=== PATIENT | female | born 1940 | race Caucasian/White ===

== ENCOUNTER 2020-11-09 13:08 | Emergency (ER) | payer MEDICARE, SELFPAY ==
[2020-11-09 13:19] VITALS: BP 177/103; PULSE 93; RESP 16; TEMP 37.4; O2SAT 96; BMI 27.4
[2020-11-09 14:03] VITALS: BP 154/89; PULSE 93; RESP 16; O2SAT 95
--- NOTE | 2020-11-09 14:03 | XRR_ITS ---
PROCEDURE INFORMATION: Exam: XR Chest Exam date and time: 11/09/2020 2:03 PM Age: 80 years old Clinical indication: Right-sided; Patient HX: Chest pain, neuropathy lower extremities, vomiting/pain throughout thoracic region, burning in chest. Generally not feeling well TECHNIQUE: Imaging protocol: XR of the chest. Views: 1 view. COMPARISON: No relevant prior studies available. FINDINGS: Lungs: Unremarkable. No consolidation. Pleural spaces: Unremarkable. No pleural effusion. No pneumothorax. Heart/Mediastinum: Calcified left hilar and aortopulmonic lymph nodes are present. Bones/joints: Unremarkable. XR/XR chest 1V portable [id number] IMPRESSION: There are no acute chest findings.
--- NOTE | 2020-11-09 14:04 | ECG_ITS ---
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 Measurements Intervals [place] Rate: 86 P: 62 MS: 178 QRS: -35 QRSD: 89 T: 81 QT: 338 QTc: 406 Interpretive Statements SINUS RHYTHM WITH SINUS ARRHYTHMIA POSSIBLE LEFT ATRIAL ENLARGEMENT [-0.1mV P WAVE IN V1/V2] MARKED LEFT AXIS DEVIATION [QRS AXIS < -30] LEFT VENTRICULAR HYPERTROPHY AND ST-T CHANGE [VOLTAGE CRITERIA PLUS ST/T ABNORMALITY] No previous ECG available for comparison Electronically Signed On 11-09-2020 21:07:30 CDT by Cami Sethi M.D. [id number] f
--- NOTE | 2020-11-09 14:05 | W.ED.GENADLT ---
HPI - General Adult General: Chief complaint: Abdominal Pain Stated complaint: High Bp, Diarrhea. Time Seen by Provider: 11/09/20 13:43 Source: patient and family Mode of arrival: ambulatory Limitations: no limitations History of Present Illness: HPI narrative: Patient is a 80-year-old female here for multiple medical complaints. Patient tells me around 12:00 AM in the middle of the night she awoke to neuropathy in her lower extremities. Patient states this is normal for her. She remembered that she had not taken her evening medications which included her gabapentin therefore around that time she took all of her evening medications. She states about 3 hours later she woke up feeling extremely nauseous and had several episodes of non-bloody emesis. She then had 1-2 episodes of non-bloody diarrhea. Patient tells me she takes sitagliptin/metformin for her diabetes and states her dose was recently doubled stating she is now on a total of 4000mg metformin daily. She states my stomach can't handle that much . She wonders if taking this medication on an empty stomach could be causing her symptoms. Patient also has complaints of pain throughout her thoracic back region. She has some pain to her right lateral chest. Symptoms have been present ever since I sneezed 30 times in a row which she tells me was about a week ago. She has some complaints of burning in her chest (as she points along her esophagus) that started following the episodes of vomiting. Patient is very talkative on exam and sometimes difficult to follow. She reports she generally feels unwell. Relieving factors: none Exacerbating factors: none Associated symptoms: Reports chest pain, nausea (subsided now) and vomiting; Deny confusion, dyspnea, headache(s), malaise, rash, palpitations or syncope Review of Systems Const: Reports: other (reports I feel ill ); Denies: fever(s), chills, body aches, change in appetite, change in weight, fatigue, malaise or night sweats Eyes: Denies: change in vision, blurry vision, photophobia, floaters or seeing flashes ENMT: Reports: throat pain and odynophagia; Denies: hoarseness, mouth pain, swelling of lips/tongue, ear or mastoid pain, ear discharge, nasal discharge, nasal congestion, post nasal drip or sinus pain Card: Reports: chest pain; Denies: palpitations, irregular heart rhythm, edema, swelling of feet/ankles, lightheadedness, syncope, pre-syncope, dyspnea on exertion, orthopnea, leg pain with exertion or acrocyanosis Resp: Reports: non-productive cough; Denies: dyspnea, productive cough, wheezing, stridor, pain on inspiration, change in phlegm color, hemoptysis or chest congestion GI: Reports: abdominal pain (subsided now), nausea (subsided now), vomiting and diarrhea; Denies: hematemesis, coffee ground emesis, dysphagia, hematochezia or melena : Denies: flank pain, difficulty voiding, dysuria, urinary frequency or urinary urgency Musc: Reports: back pain; Denies: neck pain, extremity pain, extremity swelling, joint pain or joint swelling Skin/Breast: Denies: rash Neuro: Denies: headache(s), numbness in extremities, weakness in extremities, sensory changes, lack of coordination, difficulty walking, frequent falls, dizziness, vertigo, confusion, behavioral changes, Slurred speech present, difficulty communicating thoughts or seizure-like activity Physical Exam Const: COMMON NORMALS: no acute distress, average body habitus, patient oriented x3, no limitations, healthy appearing, alert and well nourished GENERAL APPEARANCE: cooperative ORIENTATION/CONSCIOUSNESS: Yes awake, Yes oriented to person, Yes oriented to place and Yes oriented to time HENMT: COMMON NORMALS: normocephalic and atraumatic HEAD & SCALP: normocephalic and atraumatic Neck/C-Spine: COMMON NORMALS: full ROM Chest: COMMONS NORMALS: normal inspection of the chest Breast/axilla inspection: Yes no chest deformity, asymmetry, normal contours, no nodules, masses, tenderness Chest images (female): 1. very mild palpation here Resp: COMMON NORMALS: normal respiratory effort and clear to auscultation bilaterally AUSCULTATION: clear to auscultation bilaterally Cardio: COMMON NORMALS: regular rate and regular rhythm RATE: regular rate RHYTHM: regular rhythm GI: COMMON NORMALS: Normal to inspection, nondistended, normoactive bowel sounds present, Soft to palpation, non-tender, No hepatosplenomegaly present and no masses INSPECTION: Yes normal to inspection AUSCULTATION: Yes normoactive bowel sounds PALPATION: Yes Soft to palpation and Yes No hepatosplenomegaly present : COMMON NORMALS: Yes no CVA tenderness BLADDER/KIDNEY EXAM: Yes no CVA tenderness Back/Pelvis: COMMON NORMALS: no CVA tenderness, thoracic and lumbar spine normal to inspection, no thoracic nor lumbar tenderness and thoraco-lumbar ROM normal THORACIC SPINE/UPPER BACK: Yes normal to inspection, Yes thoracic ROM normal and No thoracic spinal tenderness LUMBAR SPINE/LOWER BACK: Yes normal to inspection, Yes lumbar ROM normal and No lumbar spinal tenderness PELVIS: Yes buttocks normal SACROILIAC JOINTS: Yes SI joints normal BACK IMAGE (FEMALE): 1. 2. reports pain here; during palpation and asking if it hurt she states no it feels good Extremity: COMMON NORMALS: normal to inspection, full ROM, capillary refill normal, no clubbing, cyanosis or edema, no calf tenderness and no pedal edema GENERAL: Yes normal exam except as noted Neuro: CHLOÉ COMA SCALE: document GCS findings Chloé coma scale eye opening: Spontaneous Chloé coma scale verbal response: Orientated Chloé coma scale motor response: Obey commands Chloé coma scale total score: 15 COMMON NORMALS: patient oriented x3, CN's II-XII intact bilaterally, moves all extremities, no focal motor deficits and no sensory deficits noted SENSORIUM/ORIENTATION: Yes alert, Yes oriented to person, Yes oriented to place and Yes oriented to time Skin: COMMON NORMALS: no rashes or lesions noted GENERAL SKIN EXAM: no rashes or lesions noted TRAUMA: no lacerations or abrasions Course Vital Signs: Vital signs: Vital Signs Temperature 99.4 F 11/09/20 13:19 Pulse Rate 93 11/09/20 14:03 Respiratory Rate 16 11/09/20 14:03 Blood Pressure 154/89 11/09/20 14:03 Pulse Oximetry 95 11/09/20 14:03 MDM - General Adult [facility] Narrative: Medical decision making narrative: Patient clinically appears in no acute distress. Her vital signs are stable. CBC is non-concerning. She has a normal D-dimer. Chemistry panel overall looks okay. Glucose is 170. She states her last hemoglobin A1c was over 8 so this is probably normal for her. Baseline troponin was 12 with a nonsignificant delta. Initial and repeat EKG showed no ischemic changes. CXR is normal. UA does not appear infected. She has no abdominal tenderness. Her main complaint was the nausea, vomiting, and diarrhea. She has not had any episodes of either throughout her stay. The pain in her chest/esophagus was fully alleviated after GI cocktail and felt to be secondary to possible acid irritation from the vomiting. I think symptoms were probably related to taking all of her medications including a large dose of Metformin on an empty stomach. Recommend she follow-up with her PCP for further evaluation of her diabetic medication regimen. At this time patient is stable for discharge with return to ED precautions. Lab Data: Labs: Lab Results 11/09/20 11/09/20 11/09/20 Range/Units 14:04 14:17 14:17 WBC 10.9 H (4.0-10.0) 10^3/ uL RBC 4.23 (4.1-5.3) 10^6/u L Hgb 13.3 (11.5-15.3) g/dL Hct 40.4 (37.0-47.0) % MCV 95.5 (81-99) fL MCH 31.4 (28.0-34.0) pg MCHC 32.9 (30.0-36.0) g/dL RDW 13.0 (12.1-15.1) % Plt Count 179 (130-400) 10^3/c mm MPV 10.4 (7.4-10.4) fL Neut % (Auto) 79.5 % Lymph % (Auto) 11.1 % [place] % (Auto) 8.2 % Eos % (Auto) 0.6 % Baso % (Auto) 0.3 % Neut # (Auto) 8.68 H (1.8-7.7) 10^3/u L Lymph # (Auto) 1.2 (0.8-4.8) 10^3/u L [place] # (Auto) 0.9 (0.2-0.9) 10^3/u L Eos # (Auto) 0.1 (0.0-0.8) 10^3/u L Baso # (Auto) 0.0 (0.0-0.1) 10^3/u L Nucleated RBC % (a uto) 0 % Nucleated RBCs # 0.0 /100WBC D-Dimer 0.54 (0-0.59) ug/mIFE U Sodium (136-145) mmol/L Potassium (3.5-5.1) mmol/L Chloride (98-107) mmol/L Carbon Dioxide (22-29) mmol/L Anion Gap (5-19) BUN (8-23) mg/dL Creatinine (0.5-0.9) mg/dL GFR Calculation Glucose (65-115) mg/dL POC Glucose 194 H (70-110) mg/dL Calculated Osmolal ity (285-295) mOsm/k g Calcium (8.5-10.5) mg/dL Total Bilirubin (0.15-1.2) mg/dL AST (0-32) U/L ALT (0-33) U/L Alkaline Phosphata se (35-105) IU/L Troponin T Baselin e (0-10) ng/L Troponin T 120 Min [place] (0-10) ng/L Delta Troponin T (0-10) ABS# Total Protein (6.6-8.7) g/dL Albumin (3.5-5.2) g/dL Globulin (1.3-4.6) g/dL Lipase (13-60) U/L Urine Color (Yellow) Urine Appearance (CLEAR) Urine pH (5-7) Ur Specific Gravit y (1.005-1.030) Urine Protein (Negative) Urine Glucose (UA) (Normal) Urine Ketones (Negative) Urine Blood (Negative) Urine Nitrate (Negative) Urine Bilirubin (Negative) Urine Urobilinogen (Negative) mg/dL Ur Leukocyte Mariel ase (Negative) Urine RBC (0-2) /hpf Urine WBC (0-5) /hpf Ur Squamous Epith Cells (0-5) /hpf Amorphous Sediment Urine Bacteria (NONE) /hpf Urine Mucus /hpf 11/09/20 11/09/20 11/09/20 Range/Units 14:17 14:17 14:22 WBC (4.0-10.0) 10^3/ uL RBC (4.1-5.3) 10^6/u L Hgb (11.5-15.3) g/dL Hct (37.0-47.0) % MCV (81-99) fL MCH (28.0-34.0) pg MCHC (30.0-36.0) g/dL RDW (12.1-15.1) % Plt Count (130-400) 10^3/c mm MPV (7.4-10.4) fL Neut % (Auto) % Lymph % (Auto) % [place] % (Auto) % Eos % (Auto) % Baso % (Auto) % Neut # (Auto) (1.8-7.7) 10^3/u L Lymph # (Auto) (0.8-4.8) 10^3/u L [place] # (Auto) (0.2-0.9) 10^3/u L Eos # (Auto) (0.0-0.8) 10^3/u L Baso # (Auto) (0.0-0.1) 10^3/u L Nucleated RBC % (a uto) % Nucleated RBCs # /100WBC D-Dimer (0-0.59) ug/mIFE U Sodium 131 L (136-145) mmol/L Potassium 4.4 (3.5-5.1) mmol/L Chloride 96 L (98-107) mmol/L Carbon Dioxide 22 (22-29) mmol/L Anion Gap 17.4 (5-19) BUN 13 (8-23) mg/dL Creatinine 0.7 (0.5-0.9) mg/dL GFR Calculation Not Reportable Glucose 170 H (65-115) mg/dL POC Glucose (70-110) mg/dL Calculated Osmolal ity 276 L (285-295) mOsm/k g Calcium 9.7 (8.5-10.5) mg/dL Total Bilirubin 0.4 (0.15-1.2) mg/dL AST 25 (0-32) U/L ALT 29 (0-33) U/L Alkaline Phosphata se 68 (35-105) IU/L Troponin T Baselin e 12 H (0-10) ng/L Troponin T 120 Min [place] (0-10) ng/L Delta Troponin T (0-10) ABS# Total Protein 7.2 (6.6-8.7) g/dL Albumin 4.9 (3.5-5.2) g/dL Globulin 2.3 (1.3-4.6) g/dL Lipase 51 (13-60) U/L Urine Color Yellow (Yellow) Urine Appearance Hazy A (CLEAR) Urine pH 5 (5-7) Ur Specific Gravit y 1.020 (1.005-1.030) Urine Protein Neg (Negative) Urine Glucose (UA) Norm (Normal) Urine Ketones Negative (Negative) Urine Blood Neg (Negative) Urine Nitrate Negative (Negative) Urine Bilirubin Neg (Negative) Urine Urobilinogen Norm (Negative) mg/dL Ur Leukocyte Mariel ase Negative (Negative) Urine RBC None (0-2) /hpf Urine WBC 0-4 H (0-5) /hpf Ur Squamous Epith Cells 10-15 H (0-5) /hpf Amorphous Sediment Not Reportable Urine Bacteria 1+ H (NONE) /hpf Urine Mucus 1+ /hpf 11/09/20 Range/Units 16:23 WBC (4.0-10.0) 10^3/ uL RBC (4.1-5.3) 10^6/u L Hgb (11.5-15.3) g/dL Hct (37.0-47.0) % MCV (81-99) fL MCH (28.0-34.0) pg MCHC (30.0-36.0) g/dL RDW (12.1-15.1) % Plt Count (130-400) 10^3/c mm MPV (7.4-10.4) fL Neut % (Auto) % Lymph % (Auto) % [place] % (Auto) % Eos % (Auto) % Baso % (Auto) % Neut # (Auto) (1.8-7.7) 10^3/u L Lymph # (Auto) (0.8-4.8) 10^3/u L [place] # (Auto) (0.2-0.9) 10^3/u L Eos # (Auto) (0.0-0.8) 10^3/u L Baso # (Auto) (0.0-0.1) 10^3/u L Nucleated RBC % (a uto) % Nucleated RBCs # /100WBC D-Dimer (0-0.59) ug/mIFE U Sodium (136-145) mmol/L Potassium (3.5-5.1) mmol/L Chloride (98-107) mmol/L Carbon Dioxide (22-29) mmol/L Anion Gap (5-19) BUN (8-23) mg/dL Creatinine (0.5-0.9) mg/dL GFR Calculation Glucose (65-115) mg/dL POC Glucose (70-110) mg/dL Calculated Osmolal ity (285-295) mOsm/k g Calcium (8.5-10.5) mg/dL Total Bilirubin (0.15-1.2) mg/dL AST (0-32) U/L ALT (0-33) U/L Alkaline Phosphata se (35-105) IU/L Troponin T Baselin e (0-10) ng/L Troponin T 120 Min [place] 10.58 H (0-10) ng/L Delta Troponin T -1.42 L (0-10) ABS# Total Protein (6.6-8.7) g/dL Albumin (3.5-5.2) g/dL Globulin (1.3-4.6) g/dL Lipase (13-60) U/L Urine Color (Yellow) Urine Appearance (CLEAR) Urine pH (5-7) Ur Specific Gravit y (1.005-1.030) Urine Protein (Negative) Urine Glucose (UA) (Normal) Urine Ketones (Negative) Urine Blood (Negative) Urine Nitrate (Negative) Urine Bilirubin (Negative) Urine Urobilinogen (Negative) mg/dL Ur Leukocyte Mariel ase (Negative) Urine RBC (0-2) /hpf Urine WBC (0-5) /hpf Ur Squamous Epith Cells (0-5) /hpf Amorphous Sediment Urine Bacteria (NONE) /hpf Urine Mucus /hpf Imaging Data^: CXR: My impression: NAD EKG Data^: EKG 1: EKG interpretation date: 11/09/20 EKG interpretation time: 13:44 Interpretation: Sinus rhythm with sinus arrhythmia Rate [address] elevation or depression changes noted Computer generated interpretation: Chest X-Ray 11/09/20 14:03 IMPRESSION: There are no acute chest findings. EKG 2: EKG interpretation date: 11/09/20 EKG interpretation time: 15:50 Interpretation: Sinus rhythm Rate [address] elevation or depression changes noted No acute changes when compared to EKG performed earlier on same visit Computer generated interpretation: Chest X-Ray 11/09/20 14:03 IMPRESSION: There are no acute chest findings. Discharge Plan Discharge Patient Disposition: Home Clinical Impression: Non-cardiac chest pain Adverse reaction to drug Qualifiers: Encounter type: initial encounter Qualified Code(s): T50.905A - Adverse effect of unspecified drugs, medicaments and biological substances, initial encounter Condition: Stable Prescriptions: No Action losartan 50 mg tablet 50 mg PO DAILY RF: 0 alendronate 70 mg tablet 70 mg PO Q7D RF: 0 hydrochlorothiazide 12.5 mg capsule 12.5 mg PO DAILY PRN (Reason: swelling) RF: 0 omeprazole 20 mg capsule,delayed release(DR/EC) 20 mg PO DAILY RF: 0 gabapentin 100 mg capsule 200 mg PO DAILY RF: 0 albuterol sulfate 90 mcg/actuation HFA aerosol inhaler See Rx Instructions .ROUTE .COMPLEX RF: 0 Janumet 50-1,000 mg tablet 1 tab PO BID RF: 0 Discharge Orders: Discharge ED (Routine); Ordered 11/11/20 Ordered By: Geovanna Underwood Referrals: Melvin Chinchilla MD [Primary Care Provider] - Patient Instructions: Opioid Safety Coding Level of Care Code ED [place] [facility] for [place] Fwd Exam Comprehensive
[2020-11-09 14:23] LABS: Basophils % 0.3 %; Eosinophils # 0.1 10^3/uL (0.0-0.8); Eosinophils % 0.6 %; Hematocrit 40.4 % (37.0-47.0); Hemoglobin 13.3 g/dL (11.5-15.3); Lymphocytes # 1.2 10^3/uL (0.8-4.8); Lymphocytes % 11.1 %; Mean Corpuscular HGB Conc 32.9 g/dL (30.0-36.0); Mean Corpuscular Hemoglobin 31.4 pg (28.0-34.0); Mean Corpuscular Volume 95.5 fL (81-99); Mean Platelet Volume 10.4 fL (7.4-10.4); Monocytes # 0.9 10^3/uL (0.2-0.9); Monocytes % 8.2 %; Neutrophils # 8.68 10^3/uL (1.8-7.7); Neutrophils % 79.5 %; Nucleated Red Blood Cells % 0 %; Platelet Count 179 10^3/cmm (130-400); Red Blood Count 4.23 10^6/uL (4.1-5.3); White Blood Count 10.9 10^3/uL (4.0-10.0)
[2020-11-09] MEDS: lidocaine 2% viscous 15 ML, aluminum-mag hydrox-simethicon 30 ML, sucralfate oral liq 1 GM PO (14:25)
[2020-11-09 14:36] LABS: D Dimer 0.54 ug/mIFEU (0-0.59)
[2020-11-09 14:43] LABS: Alanine Aminotransferase 29 U/L (0-33); Albumin Level 4.9 g/dL (3.5-5.2); Alkaline Phosphatase 68 IU/L (35-105); Blood Urea Nitrogen 13 mg/dL (8-23); Calcium 9.7 mg/dL (8.5-10.5); Carbon Dioxide 22 mmol/L (22-29); Chloride 96 mmol/L (98-107); Creatinine Clr Calc Pharmacy 52.4032; Globulin 2.3 g/dL (1.3-4.6); Glucose 170 mg/dL (65-115); Lipase 51 U/L (13-60); Osmolality Calculated 276 mOsm/kg (285-295); Sodium 131 mmol/L (136-145); Total Bilirubin 0.4 mg/dL (0.15-1.2); Total Protein 7.2 g/dL (6.6-8.7)
[2020-11-09 14:44] LABS: Anion Gap 17.4 (5-19); Aspartate Amino Transferase 25 U/L (0-32); Potassium 4.4 mmol/L (3.5-5.1)
[2020-11-09 14:45] LABS: Add Urine Microscopic? YES; Bilirubin Urine Neg (Negative); Blood Urine Neg (Negative); Glucose Urine UA Norm (Normal); Ketones Urine Negative (Negative); Leukocyte Esterase Urine Negative (Negative); Nitrate Urine Negative (Negative); Protein Urine Neg (Negative); Urine Appearance Hazy (CLEAR); Urine Color Yellow (Yellow); Urobilinogen Urine Norm (Negative); pH Urine 5 (5-7)
[2020-11-09 14:47] LABS: Troponin(5th) Baseline 12 ng/L (0-10)
[2020-11-09 14:52] LABS: Bacteria Urine 1+ /hpf; Mucus Urine 1+ /hpf; WBC Urine 0-4 /hpf (0-5)
[2020-11-09 14:53] LABS: Add Urine Culture? No
--- NOTE | 2020-11-09 16:04 | ECG_ITS ---
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 Measurements Intervals [place] Rate: 81 P: 69 CT: 150 QRS: -29 QRSD: 87 T: 79 QT: 363 QTc: 423 Interpretive Statements SINUS RHYTHM BORDERLINE LEFT AXIS DEVIATION [QRS AXIS < -20] LEFT VENTRICULAR HYPERTROPHY AND ST-T CHANGE [VOLTAGE CRITERIA PLUS ST/T ABNORMALITY] No previous ECG available for comparison Electronically Signed On 11-10-2020 23:05:49 CDT by Cami Sethi M.D. [id number]
[2020-11-09 16:47] LABS: Troponin 5 2HR 10.58 ng/L (0-10)
[2020-11-09 16:48] LABS: Troponin 5 2HR Delta -1.42 ABS# (0-10)
[2020-11-10 12:02] LABS: Glucose Point of Care 194 mg/dL (70-110)
== END 2020-11-09 17:48 | disposition home or self-care (01) ==
PROVIDERS: Emergency Provider Physician Assistant; PCP Family Medicine
DX: R07.89 Other chest pain (principal); T50.905A Adverse effect of unspecified drugs, medicaments and biological substances, initial encounter; R07.9 Chest pain, unspecified
CPT/HCPCS: 36415; 36416; 71045; 80053; 81001; 82962; 83690; 84484; 85025; 85378; 93005; 99283

== ENCOUNTER 2021-01-17 13:20 | Emergency (ER) | payer MEDICARE, SELFPAY ==
--- NOTE | 2021-01-17 13:32 | CTR_ITS ---
PROCEDURE INFORMATION: Exam: CT Head Without Contrast Exam date and time: 01/17/2021 1:32 PM Age: 80 years old Clinical indication: Weakness, extremity and weakness, facial; Left; Patient HX: C/O L sided weakness and facial droop; Additional info: CVA TECHNIQUE: Imaging protocol: Computed tomography of the head without contrast. Radiation optimization: All CT scans at this facility use at least one of these dose optimization techniques: automated exposure control; mA and/or kV adjustment per patient size (includes targeted exams where dose is matched to clinical indication); or iterative reconstruction. COMPARISON: No relevant prior studies available. RADIATION DOSE METRICS: Total DLP (mGy-cm): 748.35 FINDINGS: Brain: Benign globus pallidus calcifications are present. There is mild diffuse cerebral atrophy present, consistent with this patient's age. Incidental calcified pineal gland. Cerebral ventricles: No ventriculomegaly. Paranasal sinuses: Visualized sinuses are unremarkable. No fluid levels. Mastoid air cells: Visualized mastoid air cells are well aerated. Vasculature: Calcified plaque is present within the carotid siphons. Bones/joints: Unremarkable. No acute fracture. Soft tissues: Unremarkable. CT/CT head wo con* [id number] IMPRESSION: There are senescent changes of the brain as described above. No evidence for large acute ischemic infarction or acute intracranial injury. Radiation Dose CTDIVOL = (mGy): DLP = 748.35 (mGy-cm)
[2021-01-17 13:35] VITALS: BP 143/76; PULSE 73; RESP 16; TEMP 36.7; O2SAT 96; BMI 27.4
[2021-01-17 14:05] LABS: Basophils % 0.6 %; Eosinophils # 0.1 10^3/uL (0.0-0.8); Eosinophils % 1.8 %; Hematocrit 40.1 % (37.0-47.0); Hemoglobin 13.2 g/dL (11.5-15.3); Lymphocytes # 2.1 10^3/uL (0.8-4.8); Lymphocytes % 28.7 %; Mean Corpuscular HGB Conc 32.9 g/dL (30.0-36.0); Mean Corpuscular Hemoglobin 31.7 pg (28.0-34.0); Mean Corpuscular Volume 96.4 fl (81-99); Mean Platelet Volume 10.4 fL (7.4-10.4); Monocytes # 0.6 10^3/uL (0.2-0.9); Monocytes % 8.7 %; Neutrophils # 4.26 10^3/uL (1.8-7.7); Neutrophils % 59.5 %; Nucleated Red Blood Cells % 0 %; Platelet Count 192 10^3/cmm (130-400); Red Blood Count 4.16 10^6/uL (4.1-5.3); Red Cell Distribution Width 12.8 % (12.1-15.1); White Blood Count 7.2 10^3/uL (4.0-10.0)
--- NOTE | 2021-01-17 14:26 | W.ED.DIZZY ---
HPI - Dizziness General: Chief Complaint: Dizziness Stated Complaint: stroke like symptoms earlier in the day. Time Seen by Provider: 01/17/21 13:31 History of Present Illness: HPI Narrative: 80-year-old female presents emergency room via EMS. Earlier today she went out to check her mail got lightheaded dizzy felt weak on her left side felt like she was falling to the left side did not really affect her speech or vision that resolved when she got back to her apartment. Her friend stated that she later had a left-sided facial droop. On arrival here patient is awake alert oriented x3 with no focal neurologic deficits noted. Hemant have a history of previous stroke she is diabetic and had some recent medication adjustment. She reports that her symptoms are worse when she sits or stands and better when she lays down she denies any chest pain or shortness of breath. MD elicited complaint: dizziness and lightheadedness Onset (ago): minute(s) Timing: sudden onset Severity: moderate Description: sense of movement, lightheadedness, off-balance and difficulty walking Context: change in body position Exacerbating factors: change in body position Relieving factors: lying down Associated symptoms: Denies chest pain, chills, cough, diaphoresis, ear discharge, ear pressure, fevers/chills, headache(s), malaise, nausea, nasal congestion, palpitations, rash, short of breath, syncope, tinnitus, vomiting or weakness Associated neuro symptoms: Deny confusion, difficulty speaking, dysphagia, diplopia, extremity weakness, facial numbness, facial weakness, gait changes, numbness in extremities or visual changes Review of Systems Const: Denies: chills, malaise or diaphoresis ENMT: Denies: ear discharge, tinnitus or nasal congestion Card: Denies: chest pain, palpitations or syncope Resp: Denies: dyspnea, productive cough or non-productive cough GI: Denies: nausea, vomiting or dysphagia : Denies: flank pain, difficulty voiding, dysuria, urinary frequency or urinary urgency Skin/Breast: Denies: rash or pruritus Neuro: Denies: headache(s), numbness in extremities or confusion Physical Exam Const: COMMON NORMALS: no acute distress GENERAL APPEARANCE: cooperative and comfortable ORIENTATION/CONSCIOUSNESS: Yes awake, Yes oriented to person, Yes oriented to place and Yes oriented to time HENMT: COMMON NORMALS: normocephalic, atraumatic and hearing grossly normal bilaterally HEAD & SCALP: normocephalic and atraumatic Eye: COMMON NORMALS: Equal, round and reactive pupils present, EOMs intact bilaterally, conjunctivae normal and no scleral icterus CONJUNCTIVA: Yes conjunctivae normal PUPIL: Yes Equal, round and reactive pupils present Neck/C-Spine: COMMON NORMALS: full ROM, no lymphadenopathy, supple and no JVD Resp: COMMON NORMALS: normal respiratory effort, No retractions, No use of accessory muscles and clear to auscultation bilaterally AUSCULTATION: clear to auscultation bilaterally Cardio: COMMON NORMALS: no JVD, regular rate, regular rhythm and No murmurs present (Cardio) RATE: regular rate RHYTHM: regular rhythm GI: COMMON NORMALS: Soft to palpation and No hepatosplenomegaly present AUSCULTATION: Yes normoactive bowel sounds PALPATION: Yes Soft to palpation, No Tenderness to palpation present (GI), No Guarding due to palpation present (GI) and Yes No hepatosplenomegaly present Extremity: COMMON NORMALS: normal to inspection, capillary refill normal, no clubbing, cyanosis or edema, no calf tenderness and no pedal edema Neuro: SENSORIUM/ORIENTATION: Yes oriented to person, Yes oriented to place and Yes oriented to time Skin: COMMON NORMALS: no rashes or lesions noted GENERAL SKIN EXAM: no rashes or lesions noted Course Vital Signs: Vital signs: Vital Signs Temperature 98.1 F 01/17/21 13:35 Pulse Rate 73 01/17/21 18:20 Respiratory Rate 16 01/17/21 15:38 Blood Pressure 138/68 01/17/21 18:20 Pulse Oximetry 97 01/17/21 15:38 MDM - Dizziness Lab Data: Labs: Lab Results 01/17/21 01/17/21 Range/Units 13:10 13:10 WBC 7.2 (4.0-10.0) 10^3/ uL RBC 4.16 (4.1-5.3) 10^6/u L Hgb 13.2 (11.5-15.3) g/dL Hct 40.1 (37.0-47.0) % MCV 96.4 (81-99) fl MCH 31.7 (28.0-34.0) pg MCHC 32.9 (30.0-36.0) g/dL RDW 12.8 (12.1-15.1) % Plt Count 192 (130-400) 10^3/c mm MPV 10.4 (7.4-10.4) fL Neut % (Auto) 59.5 % Lymph % (Auto) 28.7 % [place] % (Auto) 8.7 % Eos % (Auto) 1.8 % Baso % (Auto) 0.6 % Neut # (Auto) 4.26 (1.8-7.7) 10^3/u L Lymph # (Auto) 2.1 (0.8-4.8) 10^3/u L [place] # (Auto) 0.6 (0.2-0.9) 10^3/u L Eos # (Auto) 0.1 (0.0-0.8) 10^3/u L Baso # (Auto) 0.0 (0.0-0.1) 10^3/u L Nucleated RBC % (a uto) 0 % Nucleated RBCs # 0.0 /100WBC Sodium 138 (136-145) mmol/L Potassium 4.5 (3.5-5.1) mmol/L Chloride 101 (98-107) mmol/L Carbon Dioxide 23 (22-29) mmol/L Anion Gap 18.5 (5-19) BUN 13 (8-23) mg/dL Creatinine 0.9 (0.5-0.9) mg/dL GFR Calculation Not Reportable Glucose 184 H (65-115) mg/dL Calculated Osmolal ity 291 (285-295) mOsm/k g Calcium 9.7 (8.5-10.5) mg/dL Total Bilirubin 0.3 (0.15-1.2) mg/dL AST 21 (0-32) U/L ALT 28 (0-33) U/L Alkaline Phosphata se 78 (35-105) IU/L Total Protein 8.1 (6.6-8.7) g/dL Albumin 4.6 (3.5-5.2) g/dL Globulin 3.5 (1.3-4.6) g/dL Discharge Plan Discharge Patient Disposition: Home Condition: Stable Prescriptions: New aspirin 81 mg tablet,delayed release (DR/EC) 81 mg PO DAILY Qty: 30 RF: 0 meclizine 25 mg tablet 12.5 mg PO QID PRN (Reason: dizziness) Qty: 20 RF: 0 No Action Jardiance 10 mg Tablet 10 mg PO DAILY MDD SEE PHARMACY COMMENT RF: 0 losartan 50 mg tablet 50 mg PO DAILY RF: 0 alendronate 70 mg tablet 70 mg PO Q7D RF: 0 hydrochlorothiazide 12.5 mg capsule 12.5 mg PO DAILY PRN (Reason: swelling) RF: 0 omeprazole 20 mg capsule,delayed release(DR/EC) 20 mg PO DAILY RF: 0 gabapentin 100 mg capsule 200 mg PO BEDTIME RF: 0 albuterol sulfate 90 mcg/actuation HFA aerosol inhaler 2 puff inhalation Q4H PRN (Reason: Shortness Of Breath) RF: 0 Janumet 50-1,000 mg tablet 1 tab PO BID RF: 0 Discharge Orders: Discharge ED (Routine); Ordered 01/17/21 Ordered By: Vik Garcia Referrals: Melvin Chinchilla MD [Primary Care Provider] - Discharge Diet: Usual diet Discharge Activity: Increase activity as tolerated Patient Instructions: Opioid Safety Coding Level of Care Code ED Screening Unit Registered Nurse for Chg Fwd Exam Comprehensive NIH stroke score NIHSS Level Of Consciousness - 1a: 0 Level Of Consciousness Questions - 1b: Both Correct Level Of Consciousness Commands - 1c: Both Correct Best Gaze - 2: Normal Visual Sosa - 3: No Visual Loss Facial Palsy - 4: Normal Motor Arm Right - 5: No Drift Motor Arm Left - 5: No Drift Motor Leg Right - 6: No Drift Motor Leg Left - 6: No Drift Limb Ataxia - 7: Absent Sensory - 8: Normal Best Language - 9: No Aphasia Dysarthia - 10: Normal Extinction And Inattention - 11: 0 Score Total Score: 0
[2021-01-17 14:30] LABS: Alanine Aminotransferase 28 U/L (0-33); Albumin Level 4.6 g/dL (3.5-5.2); Alkaline Phosphatase 78 IU/L (35-105); Anion Gap 18.5 (5-19); Aspartate Amino Transferase 21 U/L (0-32); Blood Urea Nitrogen 13 mg/dL (8-23); Calcium 9.7 mg/dL (8.5-10.5); Carbon Dioxide 23 mmol/L (22-29); Chloride 101 mmol/L (98-107); Globulin 3.5 g/dL (1.3-4.6); Glucose 184 mg/dL (65-115); Osmolality Calculated 291 mOsm/kg (285-295); Potassium 4.5 mmol/L (3.5-5.1); Sodium 138 mmol/L (136-145); Total Bilirubin 0.3 mg/dL (0.15-1.2); Total Protein 8.1 g/dL (6.6-8.7)
--- NOTE | 2021-01-17 14:54 | ECG_ITS ---
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 Measurements Intervals [place] Rate: 67 P: 56 [place]: 183 QRS: -21 QRSD: 90 T: 75 QT: 395 QTc: 420 Interpretive Statements SINUS RHYTHM BORDERLINE LEFT AXIS DEVIATION [QRS AXIS < -20] MODERATE VOLTAGE CRITERIA FOR LVH, CONSIDER NORMAL VARIANT [MEETS CRITERIA IN ONE OF: R(aVL), S(V1), R(V5), R(V5/V6)+S(V1)] Compared to ECG 11/09/2020 15:50:12 ST (T wave) deviation no longer present Electronically Signed On 01-17-2021 20:49:28 CDT by Cami Sethi M.D. [id number]
[2021-01-17 15:38] VITALS: BP 145/72; PULSE 69; RESP 16; O2SAT 97
[2021-01-17 18:20] VITALS: BP 138/68; BP 160/77; BP 162/72; PULSE 70; PULSE 72; PULSE 73
[2021-01-17 19:17] VITALS: BP 109/88; PULSE 80; RESP 18; O2SAT 95
== END 2021-01-17 19:18 | disposition home or self-care (01) ==
PROVIDERS: Emergency Provider Family Medicine; PCP Family Medicine
DX: R29.810 Facial weakness (principal); R42 Dizziness and giddiness; R53.1 Weakness
CPT/HCPCS: 70450; 80053; 85025; 93005; 99283

== ENCOUNTER 2021-03-05 13:47 | Outpatient (CLI) | payer MEDICARE, SELFPAY ==
--- NOTE | 2021-03-05 | USCV_ITS ---
Ankle-Brachial Index Oneida Crowell Age: 80 Gender: F : 1940 Exam Date: 03/05/2021 14:30 Ordering Phys: Melvin Chinchilla MD Technologist: Exam Location: [facility] [place] Indication: ? cva BP: 126 / 74 HR: 71 Rhythm: Sinus Technical Quality: Adequate MEASUREMENTS (Male / Female) Normal Values 2D ECHO LV Diastolic Diameter PLAX 3.0 cm 4.2 - 5.9 / 3.9 - 5.3 cm LV Systolic Diameter PLAX 2.0 cm IVS Diastolic Thickness 1.0 cm 0.6 - 1.0 / 0.6 - 0.9 cm IVS Systolic Thickness 1.4 cm LVPW Diastolic Thickness 1.0 cm 0.6 - 1.0 / 0.6 - 0.9 cm LVPW Systolic Thickness 0.9 cm LVOT Diameter 2.1 cm LV Ejection Fraction 2D Teich 62.5 % LV Ejection Fraction MOD 2C 83.3 % LV Ejection Fraction 2C AL 83.7 % LA Diameter 2.8 cm LA Width 3.2 cm LA Height 3.5 cm RA Width 3.2 cm RA Height 3.7 cm DOPPLER AV Peak Velocity 113.0 cm/s LVOT Peak Velocity 103.0 cm/s AV Area Cont Eq vti 3.1 cm squared AV Area Cont Eq pk 3.0 cm squared MV Area PHT 5.0 cm squared Mitral E to A Ratio 0.8 MV E' Velocity 51.6 cm/s Mitral E to MV E' Ratio 11.7 Mitral E to LV E' Lateral Ratio 9.3 Mitral E to LV E' Septal Ratio 15.8 TR Peak Velocity 247.3 cm/s TR Peak Gradient 24.5 mmHg TV Peak E Velocity 93.0 cm/s Right Atrial Pressure 3.0 mmHg Pulmonary Artery Systolic Pressu 27.5 mmHg FINDINGS Left Ventricle Normal left ventricular size, systolic function and wall thickness, with no regional wall motion abnormalities. Left ventricular ejection fraction is estimated at 70 %. Grade I diastolic dysfunction (abnormal relaxation filling pattern), normal to mildly elevated filling pressures. Right Ventricle Normal right ventricular size and systolic function. Right ventricular systolic pressure 33 mmHg. Right Atrium Mildly increased right atrial size. Left Atrium Mildly increased left atrial size. Mitral Valve Mild mitral annular calcification. No mitral valve stenosis. Trace-mild mitral valve regurgitation. Aortic Valve Structurally normal trileaflet aortic valve. No aortic valve stenosis. Trace aortic valve regurgitation. Tricuspid Valve Structurally normal tricuspid valve. No tricuspid valve stenosis. Moderate tricuspid valve regurgitation. Pulmonic Valve Pulmonic valve not well visualized. No pulmonary valve stenosis. No pulmonary valve regurgitation. Pericardium No pericardial effusion. Aorta Normal size aortic root. CONCLUSIONS 1. Normal left ventricular size, systolic function and wall thickness, with no regional wall motion abnormalities. Left ventricular ejection fraction is estimated at 70 %. Grade I diastolic dysfunction (abnormal relaxation filling pattern), normal to mildly elevated filling pressures. 2. Moderate tricuspid valve regurgitation. 3. Pulmonary artery pressure estimated at 33 mm Hg. 4. No prior similar studies to compare. Cami Sethi MD (Electronically Signed) Final Date: 08 March 2021 18:57 S
--- NOTE | 2021-03-05 13:58 | USCV_ITS ---
Oneida Crowell Age: 80 Gender: F : 1940 Exam Date: 03/05/2021 14:44 Ordering Phys: Melvin Chinchilla MD Technologist: Exam Location[place] [facility] [place] Indication: ? cva Risk Factors: None Previous Vascular Surgery: None Right Brachial BP: / Left Brachial BP: / Right Left Velocity (cm/s) Spectral Plaque Velocity (cm/s) Spectral Plaque Syst/Diast Broadening Syst/Diast Broadening 68.40/ 12.10 Prox CCA 73.20 / 13.75 63.90/ 8.80 Mid CCA 57.30 / 13.60 79.40/ 16.50 Distal CCA 53.90 / 11.30 55.00/ 9.80 Prox ICA 49.10 / 10.90 56.50/ 12.10 Mid ICA 63.35 / 9.75 55.00/ 9.80 Distal ICA 61.60 / 8.60 137.00 ECA 118.40 0.71 ICA/CCA 0.75 Antegrade Vertebral Antegrade 39.20/ 5.30 cm/s 40.50/ 10.10 cm/s Bi Subclavian Bi 83.70 108.4 0 FINDINGS Mild to moderate heterogeneous plaques at the bifurcation and proximal internal carotid arteries bilaterally. Intimal thickening in the common carotid arteries bilaterally Antegrade flow in the vertebral arteries bilaterally. Normal Doppler flow velocities in the external carotid, vertebral and subclavian arteries bilaterally CONCLUSIONS Mild to moderate heterogeneous plaques at the bifurcations and proximal internal carotid arteries bilaterally with Doppler features consistent with less than 50% stenosis. Intimal thickening in the common carotid arteries bilaterally No previous studies are available for comparison. Dr Scarlett Russell MD [facility] (Electronically Signed) Final Date: 05 March 2021 20:41 S
== END 2021-03-05 13:48 | disposition home or self-care (01) ==
PROVIDERS: PCP Family Medicine; Visit Provider Family Medicine
DX: G45.9 Transient cerebral ischemic attack, unspecified (principal); I07.1 Rheumatic tricuspid insufficiency
CPT/HCPCS: 93306; 93880

== ENCOUNTER 2021-07-13 14:04 | Outpatient (CLI) | payer MEDICARE, SELFPAY ==
--- NOTE | 2021-07-13 14:22 | XR_ITS ---
WS: [id number] SCREENING DEXA SCAN [employer] CLINICAL INFORMATION: POSTMENOPAUSAL COMPARISON: None. FINDINGS: The L1-L4 bone mineral density measures 1.014 g/cm2. This corresponds to a T score score of -1.4 and Z score of 0.4. Left femoral neck bone mineral density measures 0.783 g/cm2. This corresponds to a T score of -1.8 an d Z score of 0.1. Right femoral neck bone mineral density measures 0.786 g/cm2. This corresponds to a T score -1.8of an d Z score of 0.2. Mean femoral neck bone mineral density measures 0.784 g/cm2. This corresponds to a T score of -1.8 an d Z score of 0.2. XR/XR DEXA axial skeleton* [id number] IMPRESSION: Osteopenia Patient's FRAX calculated 10 year probability for major osteoporotic fracture i s 23.0 % and osteoporotic hip fracture is 6.4%.
== END 2021-07-13 14:05 | disposition home or self-care (01) ==
LOC: RAD 14:17
PROVIDERS: PCP Family Medicine; Visit Provider Nurse Practitioner Family
DX: Z78.0 Asymptomatic menopausal state (principal); M85.80 Other specified disorders of bone density and structure, unspecified site
CPT/HCPCS: 77080

== ENCOUNTER 2021-08-28 10:49 | Outpatient (CLI) | payer MEDICARE, SELFPAY ==
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
== END 2021-08-28 10:50 | disposition home or self-care (01) ==
PROVIDERS: PCP Family Medicine; Visit Provider Family Medicine
DX: N63.21 Unspecified lump in the left breast, upper outer quadrant (principal)
CPT/HCPCS: 76642; 77062

== ENCOUNTER 2021-09-09 11:48 | Emergency (ER) | payer OTHER, MEDICARE, SELFPAY ==
[2021-09-09 11:59] VITALS: BP 154/94; PULSE 73; RESP 16; TEMP 36.6; O2SAT 97; BMI 27.4
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
[2021-09-09 12:07] VITALS: BP 154/94; PULSE 73; RESP 15; O2SAT 95
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
[2021-09-09 12:29] LABS: Basophils # 0.1 10^3/uL (0.0-0.1); Basophils % 0.8 %; Eosinophils # 0.1 10^3/uL (0.0-0.8); Eosinophils % 1.5 %; Hematocrit 41.5 % (37.0-47.0); Hemoglobin 13.8 g/dL (11.5-15.3); Lymphocytes # 1.7 10^3/uL (0.8-4.8); Lymphocytes % 27.3 %; Mean Corpuscular HGB Conc 33.3 g/dL (30.0-36.0); Mean Corpuscular Hemoglobin 31.7 pg (28.0-34.0); Mean Corpuscular Volume 95.4 fl (81-99); Mean Platelet Volume 10.6 fL (7.4-10.4); Monocytes # 0.5 10^3/uL (0.2-0.9); Monocytes % 8.9 %; Nucleated Red Blood Cells % 0 %; Platelet Count 201 10^3/cmm (130-400); Red Blood Count 4.35 10^6/uL (4.1-5.3); Red Cell Distribution Width 13.2 % (12.1-15.1); White Blood Count 6.1 10^3/uL (4.0-10.0)
[2021-09-09 13:02] LABS: Alanine Aminotransferase 21 U/L (0-33); Albumin Level 4.7 g/dL (3.5-5.2); Alkaline Phosphatase 69 IU/L (35-105); Chloride 104 mmol/L (98-107); Potassium 4.1 mmol/L (3.5-5.1); Sodium 138 mmol/L (136-145)
[2021-09-09] MEDS: iodixanol 320 mg/mL 100mL Btl IV (13:10)
[2021-09-09 13:20] VITALS: BP 165/77; PULSE 63; RESP 16; O2SAT 98
[2021-09-09 14:00] LABS: Anion Gap 18.1 (5-19); Aspartate Amino Transferase 23 U/L (0-32); Blood Urea Nitrogen 16 mg/dL (8-23); Calcium 9.8 mg/dL (8.5-10.5); Carbon Dioxide 20 mmol/L (22-29); Globulin 2.7 g/dL (1.3-4.6); Glucose 171 mg/dL (65-115); Osmolality Calculated 291 mOsm/kg (285-295); Total Bilirubin 0.4 mg/dL (0.15-1.2); Total Protein 7.4 g/dL (6.6-8.7)
[2021-09-09 14:15] VITALS: BP 132/84; PULSE 75; RESP 18; O2SAT 96
== END 2021-09-09 14:15 | disposition home or self-care (01) ==
PROVIDERS: Emergency Provider Physician Assistant; PCP Family Medicine
DX: S20.219A Contusion of unspecified front wall of thorax, initial encounter (principal); M54.2 Cervicalgia; V89.2XXA Person injured in unspecified motor-vehicle accident, traffic, initial encounter; S13.9XXA Sprain of joints and ligaments of unspecified parts of neck, initial encounter; Z79.82 Long term (current) use of aspirin
CPT/HCPCS: 70450; 71260; 72125; 80053; 85025; 99283; Q9967

== ENCOUNTER → 2023-12-15 11:54 | Outpatient (BNVA) | payer MEDICARE, SELFPAY | PROVIDERS: PCP Family Medicine; Visit Provider Specialist | DX: G62.9 Polyneuropathy, unspecified (principal); M54.12 Radiculopathy, cervical region | CPT/HCPCS: 95913 ==

== ENCOUNTER 2023-12-19 15:48 | Inpatient (IN) | payer MEDICARE, SELFPAY ==
[2023-12-19] VITALS (31 sets, daily range): BP systolic 107–147; BP diastolic 57–88; PULSE 59–86; RESP 9–22; TEMP 36.6–36.8; O2SAT 90–100; BMI 25.2; BMI 24.9
--- NOTE | 2023-12-19 15:45 | ECG_ITS ---
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 Measurements Intervals [place] Rate: 59 P: 64 OK: 210 QRS: -32 QRSD: 90 T: 51 QT: 423 QTc: 422 Interpretive Statements SINUS BRADYCARDIA WITH FIRST DEGREE AV BLOCK LEFT AXIS DEVIATION [QRS AXIS < -30] LOW QRS VOLTAGE IN PRECORDIAL LEADS [QRS DEFLECTION < 1.0 mV IN CHEST LEADS] POSSIBLE RIGHT VENTRICULAR CONDUCTION DELAY [RSR (QR) IN V1/V2] MODERATE VOLTAGE CRITERIA FOR LVH, CONSIDER NORMAL VARIANT [MEETS CRITERIA IN ONE OF: R(aVL), S(V1), R(V5), R(V5/V6)+S(V1)] POSSIBLE SEPTAL MYOCARDIAL INFARCTION , OF INDETERMINATE AGE [30 ms Q WAVE IN V1/V2] Compared to ECG 01/17/2021 15:19:56 First degree AV block now present Low QRS voltage now present Sinus rhythm no longer present Electronically Signed On 12-20-2023 8:31:29 CDT by Wild Miller M.D. [id number] f
--- NOTE | 2023-12-19 15:51 | ECG_ITS ---
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 Measurements Intervals [place] Rate: 59 P: 60 NC: 211 QRS: -30 QRSD: 88 T: 16 QT: 437 QTc: 435 Interpretive Statements SINUS BRADYCARDIA WITH FIRST DEGREE AV BLOCK MODERATE VOLTAGE CRITERIA FOR LVH, CONSIDER NORMAL VARIANT [MEETS CRITERIA IN ONE OF: R(aVL), S(V1), R(V5), R(V5/V6)+S(V1)] POSSIBLE SEPTAL MYOCARDIAL INFARCTION , OF INDETERMINATE AGE [30 ms Q WAVE IN V1/V2] Compared to ECG 01/17/2021 15:19:56 First degree AV block now present Myocardial infarct finding now present Sinus rhythm no longer present Electronically Signed On 12-20-2023 8:06:28 CDT by Dusty Raymundo M.D. [id number]
--- NOTE | 2023-12-19 15:51 | XRR_ITS ---
PROCEDURE INFORMATION: Exam: XR Chest Exam date and time: 12/19/2023 4:10 PM Age: 83 years old Clinical indication: Pain; Angina pectoris; Additional info: Cp TECHNIQUE: Imaging protocol: Radiologic exam of the chest. Views: 1 view. COMPARISON: CT chest w con* [id number] 09/09/2021 12:59 PM FINDINGS: Lungs: Unremarkable. No consolidation. Pleural spaces: Unremarkable. No pleural effusion. No pneumothorax. Heart/Mediastinum: Unremarkable. No cardiomegaly. There are calcified mediastinal and perihilar lymph nodes consistent with prior granulomatous exposure. Bones/joints: Unremarkable. XR/XR chest 1V portable [id number] IMPRESSION: No acute findings.
--- NOTE | 2023-12-19 15:57 | ED_ITS ---
HPI - Chest Pain 2 General: Chief Complaint: Chest Pain Stated Complaint: CHEST PAIN Time Seen by Provider: 12/19/23 15:51 Source: patient Mode of arrival: ambulatory Limitations: no limitations History of Present Illness: 83-year-old female states that started h aving chest pain roughly 1 to 2 hours ago she states that pressure type pain in her chest is improved after nitro and aspirin. Patient states that her pain is currently a 1 out of 10 she denies any shortness of breath no history of coronary disease she denies any nausea or vomiting. Associated symptoms: Deny abdominal pain, dyspnea, fever(s), nausea or vomiting Review of Systems 2 Const: Denies: fever(s), chills, body aches or change in appetite ENMT: Denies: throat pain or dental pain Card: Reports: chest pain Resp: Denies: dyspnea GI: Denies: abdominal pain, nausea, vomiting or diarrhea Musc: Denies: neck pain or back pain Skin/Breast: Denies: rash Neuro: Denies: headache(s) Physical Exam 2 Const: COMMON NORMALS: no acute distress, patient oriented x3 and healthy appearing HENMT: COMMON NORMALS: normocephalic and atraumatic HEAD & SCALP: n ormocephalic and atraumatic Neck/C-Spine: COMMON NORMALS: full ROM and supple Chest: COMMONS NORMALS: normal inspection of the chest Resp: COMMON NORMALS: normal respiratory effort, No retractions, No use of accessory muscles and clear to auscultation bilaterally AUSCULTATION: clear to auscultation bilaterally Cardio: COMMON NORMALS: regular rate, regular rhythm and No murmurs present (Cardio) RATE: regular rate RHYTHM: regular rhythm GI: COMMON NORMALS: Normal to inspection, nondistended, normoactive bowel sounds present, Soft to palpation, non-tender and no masses PALPATION: Yes Soft to palpation Extremity: COMMON NORMALS: normal to inspection and full ROM Neuro: COMMON NORMALS: patient oriented x3, moves all extremities and no focal motor deficits Psych: COMMON NORMALS: mental status grossly normal, Normal thought process present and cooperative THOUGHT PROCESS: Normal thought process present Skin: COMMON NORMALS: no rashes or lesions noted and no wounds GENERAL SKIN EXAM: no rashes or lesions noted Course 2 Reevaluation(s): Reevaluation #1: Patient's pain has improved greatly her EKG here has some elevation V2 V3 but is upsloping appearance of early repolarization I sent the EKGs to agricultural engineering technician Dr. Raymundo who agrees that is not a typical ST elevation SC. Time: 16:03 Reevaluation #2: Patient's pain had returned she did complain of some pain in her chest and neck had another repeat EKG she now does have elevation noted in V1 V2 and worsening depression in 3 and aVF spoke to agricultural engineering technician and will activate STEMI alert off the second EKG Time: 16:18 Vital Signs: Vital signs: Vital Signs Temperature 98.3 F 12/19/23 15:49 Pulse Rate 60 12/19/23 16:26 Respiratory Rate 16 12/19/23 16:26 Blood Pressure 141/77 12/19/23 16:26 Pulse Oximetry 98 12/19/23 16:26 Oxygen Delivery Me thod Room Air 12/19/23 16:26 MDM - Chest Pain Medical Decision Making Patient presents here with ST elevation SC initial EKG here showed more signs of early repolarization in her pain and resolved when she initially arrived it was very minimal she did start having worsening pain and did repeat EKG that did show findings concerning for STEMI STEMI alert was called patient given heparin Plavix and going to the Inside Sales Trainer she did receive aspirin with EMS Medical Records I reviewed the patient's medical records. Lab Data I reviewed the patient's lab results. 12/19/23 16:03 12/19/23 16:03 Radiology Impressions Chest X-Ray 12/19/23 15:51 IMPRESSION: No acute findings. Laboratory Results WBC 7.27 10^3/uL (3.29-11.43) 12/19/23 16:03 RBC 3.89 10^6/uL (3.85-5.65) 12/19/23 16:03 Hgb 12.40 g/dL (11.27-16.99) 12/19/23 16:03 Hct 37.4 % (36-47) 12/19/23 16:03 MCV 96.1 fl (85-98) 12/19/23 16:03 MCH 31.9 pg (27-33) 12/19/23 16:03 MCHC 33.2 g/dL (30-55) 12/19/23 16:03 RDW 12.7 % (12.1-15.1) 12/19/23 16:03 Plt Count 173 10^3/cmm (157-399) 12/19/23 16:03 MPV 10.0 fL (7.4-10.4) 12/19/23 16:03 Neut % (Auto) 52.6 % 12/19/23 16:03 Lymph % (Auto) 35.6 % 12/19/23 16:03 [place] % (Auto) 8.7 % 12/19/23 16:03 Eos % (Auto) 1.7 % 12/19/23 16:03 Baso % (Auto) 0.7 % 12/19/23 16:03 Neut # (Auto) 3.83 10^3/uL (1.8-7.7) 12/19/23 16:03 Lymph # (Auto) 2.6 10^3/uL (0.8-4.8) 12/19/23 16:03 [place] # (Auto) 0.6 10^3/uL (0.2-0.9) 12/19/23 16:03 Eos # (Auto) 0.1 10^3/uL (0.0-0.8) 12/19/23 16:03 Baso # (Auto) 0.1 10^3/uL (0.0-0.1) 12/19/23 16:03 Nucleated RBC % (auto) 0 % 12/19/23 16:03 Nucleated RBCs # 0.0 /100WBC 12/19/23 16:03 Sodium 141 mmol/L (136-145) 12/19/23 16:03 Potassium 3.8 mmol/L (3.5-5.1) 12/19/23 16:03 Chloride 105 mmol/L (98-107) 12/19/23 16:03 Carbon Dioxide 22 mmol/L (22-29) 12/19/23 16:03 Anion Gap 17.8 (5-19) 12/19/23 16:03 BUN 15 mg/dL (8-23) 12/19/23 16:03 Creatinine 1.1 mg/dL (0.5-0.9) H 12/19/23 16:03 GFR Calculation Not Reportable 12/19/23 16:03 Glucose 169 mg/dL (65-115) H 12/19/23 16:03 Calculated Osmolality 297 mOsm/kg (285-295) H 12/19/23 16:03 Calcium 9.1 mg/dL (8.5-10.5) 12/19/23 16:03 Total Bilirubin 0.2 mg/dL (0.15-1.2) 12/19/23 16:03 AST 18 U/L (0-32) 12/19/23 16:03 ALT 15 U/L (0-33) 12/19/23 16:03 Alkaline Phosphatase 60 U/L (35-105) 12/19/23 16:03 Troponin T Baseline 24 ng/L (0-10) H 12/19/23 16:03 Total Protein 6.4 g/dL (6.6-8.7) L 12/19/23 16:03 Albumin 4.1 g/dL (3.5-5.2) 12/19/23 16:03 Globulin 2.3 g/dL (1.3-4.6) 12/19/23 16:03 All radiology interpretation(s) finalized by discharge EKG Data EKG 1: I personally reviewed and interpreted this EKG as follows: EKG interpretation date: 12/19/23 EKG interpretation time: 15:49 Interpretation: sinus susan hr 59 no stemi qrs 90 qtc 423 EKG 2: I personally reviewed and interpreted this EKG as follows: EKG interpretation date: 12/19/23 EKG interpretation time: 16:18 Interpretation: sinus susan hr 59 st elevation [place] qrs 88 qtc 437 Discharge Plan Discharge Patient Disposition: Admitted As Inpatient Clinical Impression: ST elevation myocardial infarction (STEMI) Condition: Stable Coding Level of Care Code ED Human Factors Ergonomist for Lucho Grier
[2023-12-19 16:11] LABS: Basophils # 0.1 10^3/uL (0.0-0.1); Basophils % 0.7 %; Eosinophils # 0.1 10^3/uL (0.0-0.8); Eosinophils % 1.7 %; Hematocrit 37.4 % (36-47); Lymphocytes # 2.6 10^3/uL (0.8-4.8); Lymphocytes % 35.6 %; Mean Corpuscular HGB Conc 33.2 g/dL (30-55); Mean Corpuscular Hemoglobin 31.9 pg (27-33); Mean Corpuscular Volume 96.1 fl (85-98); Monocytes # 0.6 10^3/uL (0.2-0.9); Monocytes % 8.7 %; Neutrophils # 3.83 10^3/uL (1.8-7.7); Neutrophils % 52.6 %; Nucleated Red Blood Cells % 0 %; Platelet Count 173 10^3/cmm (157-399); Red Blood Count 3.89 10^6/uL (3.85-5.65); Red Cell Distribution Width 12.7 % (12.1-15.1); White Blood Count 7.27 10^3/uL (3.29-11.43)
[2023-12-19] MEDS: ondansetron 2 mg/ML SDV 2 mL 4 MG IVP (16:12)
[2023-12-19] MEDS: morphine 4 mg/mL SDV 1 mL IVP (16:12)
--- NOTE | 2023-12-19 16:27 | XACV_ITS ---
Exam Room: 2 Ht: 157 cm Wt: 63 kg BSA: 1.67 m2 Gender: Female : 1940 Any Known Allergies: Other Exam Priority: Routine Indication(s): - Acute anterior wall TN Procedure(s): Procedure Description: Diagnostic procedure Procedure Description: PCI procedure Procedure Description: Drug Eluting Coronary Stent Procedure Description: PTCA Procedure Description: Coronary Angiography Diagnostic Cath Status: Emergency Diagnostic Findings * Typical chest pain with anterior EKG changes. Procedure done from the right radial artery. LAD is closed in the proximal portion just beyond the takeoff of the first septal branch. The actual occlusion is more distal at the takeoff of a diagonal branch. The left main is normal. The circumflex contains a 80% stenosis in the second obtuse marginal branch. The right coronary artery is the dominant vessel and ends distally as the posterior descending artery and posterior left ventricular branch. The right coronary artery is normal. Left ventriculography was not performed. PCI Status: Emergency PCI LVEF Assessed: No PCI Indication: Immediate PCI for STEMI Interventional Findings * LAD was difficult to wire. The wire had a predilection for the diagonal branch. In the end an undesired renae wire situation occurred where the diagonal wire created a tendency for the other wire to go down the diagonal. I pulled the diagonal wire back and was able to insert the second wire to the LAD. I then rewired the diagonal. Initially I did a balloon angioplasty of the LAD. Because of the anatomy required ballooning across the takeoff of the diagonal. I then stented the LAD in the midportion and was forced to fdc the diagonal. I left the wire in the diagonal. The diagonal closed during the stenting process. I still had a wire in place. I was able to place a balloon into the diagonal and open it up. There was about 20% residual ostial diagonal disease. I then placed a second stent more proximally in the LAD where there appeared to be some hazy thrombus material. The end result was quite good with good MIREILLE flow. Decision for PCI with Surgical Consult: No PCI for Multi-vessel Disease: No Conclusions 1. Anterior wall TN with occlusion of the LAD and diagonal. LAD stent with diagonal angioplasty. Residual circumflex disease not addressed at this time. Recommendations * Aggrastat drip for now. Either staged angioplasty of the second marginal branch in the future or stress testing to assess ischemic burden there. Interventional RX Recommendation: PCI w/o planned CABG Diagnostic RX Recommendation: PCI w/o planned CABG Anticoagulation: Heparin, Tirofiban Pressures Phase:Rest AO : 158 / 74 ( 111 ) @ 6:13:00 PM 106 / 55 ( 80 ) @ 6:19:00 PM 113 / 53 ( 80 ) @ 6:36:00 PM 96 / 52 ( 72 ) @ 6:37:00 PM 130 / 74 ( 101 ) @ 6:41:00 PM 130 / 72 ( 97 ) @ 6:48:00 PM 109 / 80 ( 96 ) @ 6:56:00 PM Clinical Evaluation EBL: 5mL-10mL Procedural Details Pre-Procedure Time Out. Identified patient by full name and date of as verbalized by the patient/guarantor. Does the consent match the physician's order: N/A Emergent. Accurate & Complete Informed Consent: N/A Emergent. Inpatient/Outpatient History & Physical on Chart: N/A Emergent. If H&P is completed, is and addenduem needed: N/A Emergent; If yes, is the addendum complete: N/A Emergent. Visualize and Verify Site with Patient/Guarantor: N/A. Relevant Radiology Images available: N/A Emergent. Pre-op teaching completed and patient verbalized understanding. The risks, benefits, and alternatives of sedation and/or procedure were discussed by physician. The patient agrees to continue. Procedure started. Physician arrived. [facility] Clinical Fraility Score: 4: Vulnerable. Day Care Director Indications: ACS <= 24 hours. Chest Pain Symptom Assessment: Typical Angina Symptoms. Correct patient, site and procedure confirmed by cath team. Cardiovascular Instability: Yes, if yes, Hemodynamic Instability. Current diagnosis: STEMI. PERRLA. 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 Lungs clear x 5 lobes. IV Site on Arrival: 18 gauge in the right hand. IV Site on Arrival: 20 gauge in the left anticubital. IV Fluids: 0.9% NaCl at KVO. 0 mL infused prior to lab support technician. right groin was prepped with chloroprep then draped in the usual sterile fashion. right radial was prepped with chloroprep then draped in the usual sterile fashion. Oxygen started at 2liters/min via nasal canula. Baseline sample Acquired. HR: 60 BPM. Physician scrubbed in. Immediate Pre-Procedure Time Out. Correct Patient: N/A Emergent; Correct Procedure: N/A Emergent; Correct Site: N/A Emergent; Correct Patient Position: N/A Emergent; Correct Supplies: N/A Emergent; Dried Flammable Prep: N/A Emergent; Blood Products Available: N/A Emergent;. Current Diagnosis : STEMI. Lidocaine 1% infiltrated to the right radial. AP Pads placed on the patient. Arterial access obtained. 6 maldivian XB 3 guide catheter was inserted over the wire. Multiple views taken of left coronary artery. [place] guidewire was advanced through the guide catheter to lesion in the diaganol. A second [place] wire inserted through the guide catheter to the Mid LAD. PCI Indication : Immediate PCI for STEMI. The second [place] wire removed. Runthrough guidewire was advanced through the guide catheter to lesion in the mid LAD. Balloon inserted to lesion in the mid LAD. Inflation number : 1 A AB TREK 2.50X15 RX BALLOON was prepped and advanced across the Mid LAD , then inflated to 8 BONNY for 0:22 seconds. Balloon out. Results checked. Inflation Number : 2 A NATALYA Garcia YADI 2.5X15 PAMELLA -Lot Number# _[id number] EXP: 12/16/2025 was prepped and advanced across the Mid LAD. The stent was deployed at 12 BONNY for 0:30 seconds. Stent balloon out over wire. Results checked. Inflation number : 1 A AB MINI TREK 2.00X12 RX BALLOON was prepped and advanced across the 1st Diag , then inflated to 5 BONNY for 0:27 seconds. Balloon out. Inflation Number : 3 A NATALYA Garcia YADI 2.5X8 PAMELLA -Lot Number# _[id number] EXP: 01/14/2026 was prepped and advanced across the Mid LAD. The stent was deployed at 12 BONNY for 0:26 seconds. Stent balloon out over wire. Results checked. Wires out. Guide catheter out. A 5 maldivian JR4 catheter in over wire. Multiple views taken of right coronary artery. Catheter removed over the standard wire. Physician scrubbed out. A TR Band was successful obtaining hemostatsis at the Right Radial artery insertion site. Post Procedure: Pulses reassessed and unchanged. PERRLA. 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 No VTE prophylaxis required. Vital chart was stopped. Post-op diagnosis: Stents to LAD. Complications: None. Estimated blood loss: 5mL-10mL. Responsiveness - Normal response to verbal stimuli; alert and oriented, PERRLA. Airway - Unaffected, no intervention required; spontaneous ventilation. Circulation: W/N/L, pulses unchanged. Nausea/Vomiting: No. Procedure completed. Patient transferred by wheelchair to ICU. Access Site Site: Right Radial artery Sheath Size: 6 Fr Hemostasis Method: TR Band Hemostasis Success: Successful Procedure Medications Start: 5:08 PM Stop: 5:08 PM Medication: Versed Amount: 1 mg Route: I.V. Start: 5:09 PM Stop: 5:09 PM Medication: Fentanyl Amount: 25 mcg Route: I.V. Start: 5:11 PM Stop: 5:11 PM Medication: Nitrogylcerin Amount: 200 mcg Route: I.A. Start: 5:36 PM Stop: 5:36 PM Medication: Fentanyl Amount: 25 mcg Route: I.V. Start: 5:39 PM Stop: 5:39 PM Medication: Versed Amount: 1 mg Route: I.V. Start: 5:47 PM Stop: 5:47 PM Medication: Aggrastat 12.5 mg/250 mL Amount: 32 ml Route: I.C. Start: 5:47 PM Stop: 5:47 PM Medication: Aggrastat 12.5 mg/250 mL Amount: 11.5 ml/hr Route: I.V. milind Hernandez, the attending physician, have reviewed and verified all procedure medications. Yes, all medications given per verbal order History/Risk Factors Hypertension: No Dyslipidemia: No Peripheral Arterial Disease (PAD): No Myocardial Infarction (TN): No Obesity: No Renal Disease: No Prior Interventions PCI: No CABG: No Valve Surgery: No Report Signatures Finalized by Dr. Dusty Raymundo MD on 12/19/2023 06:20 PM
[2023-12-19 16:34] LABS: Troponin(5th) Baseline 24 ng/L (0-10)
[2023-12-19 16:40] LABS: Alanine Aminotransferase 15 U/L (0-33); Albumin Level 4.1 g/dL (3.5-5.2); Alkaline Phosphatase 60 U/L (35-105); Anion Gap 17.8 (5-19); Aspartate Amino Transferase 18 U/L (0-32); Blood Urea Nitrogen 15 mg/dL (8-23); Calcium 9.1 mg/dL (8.5-10.5); Carbon Dioxide 22 mmol/L (22-29); Chloride 105 mmol/L (98-107); Creatinine Clr Calc Pharmacy 34.8887; Globulin 2.3 g/dL (1.3-4.6); Glucose 169 mg/dL (65-115); Osmolality Calculated 297 mOsm/kg (285-295); Potassium 3.8 mmol/L (3.5-5.1); Sodium 141 mmol/L (136-145); Total Bilirubin 0.2 mg/dL (0.15-1.2); Total Protein 6.4 g/dL (6.6-8.7)
[2023-12-19] MEDS: clopidogrel 300 mg Tablet 600 MG PO (16:43)
[2023-12-19] MEDS: heparin 5,000 unit/mL INJ 1 mL 4000 UNIT IVP (16:44)
[2023-12-19] MEDS: clopidogrel 300 mg Tablet PO (16:45)
--- NOTE | 2023-12-19 16:49 | P.HP_ITS ---
Providers/Chief Complaint 2 Admitting Physician: Breanne Primary Care Provider: Melvin Chinchilla MD Chief Complaint: CHEST PAIN History of Present Illness Oneida Crowell is a 83 year old female with no known history of coronary artery disease who came into the emergency room a couple hours ago with somewhat unusual chest pain. It was waxing and waning. She was given a nitroglycerin by the ambulance drivers. By the time she arrived here the pain was barely detectable. First EKG revealed some subtle appearing changes in the anterior precordial leads but not enough to warrant calling an acute [place]. Second EKG however showed more suspicious findings in leads V1 and V2 and so we decided to call a STEMI alert. The patient is very talkative and hard to hold down to 1 subject. The pain returned just prior to the second EKG. Looks much more suspicious for an injury current. She is a diabetic and has a peripheral neuropathy, hypertension and mild carotid disease. She has multiple medication allergies or send and sensitivities including statins. She apparently does have dyslipidemia. She was a smoker when she was a much younger woman. She received aspirin when she arrived. Upon my arrival I asked the nurses to give her heparin, Plavix and some morphine for the discomfort. She will be brought to the catheterization laboratory as soon as possible. Review of Systems 2 Narrative: Review of systems is diffusely positive in multiple distributions. Medications/Allergies Home Medications Medication Instructions Recorded Confirmed Last Taken Type albuterol sulfate 90 mcg/actuation 2 puff inhalation Q4H PRN 11/09/20 12/15/23 11/08/20 History aerosol inhaler Shortness Of Breath alendronate 70 mg tablet 70 mg PO Q7D 11/09/20 12/15/23 01/12/21 History gabapentin 100 mg capsule 200 mg PO BEDTIME 11/09/20 12/15/23 01/16/21 History hydrochlorothiazide 12.5 mg capsule 12.5 mg PO DAILY PRN swelling 11/09/20 12/15/23 Unknown History losartan 50 mg tablet 50 mg PO DAILY 11/09/20 12/15/23 01/16/21 History omeprazole 20 mg capsule,delayed 20 mg PO DAILY 11/09/20 12/15/23 01/16/21 History release sitagliptin phosphate 50 1 tab PO BID 11/09/20 12/15/23 01/16/21 History mg-metformin 1,000 mg tablet (Janumet) aspirin 81 mg tablet,delayed 81 mg PO DAILY #30 tabs 01/17/21 12/15/23 Unknown Rx release empagliflozin 10 mg tablet 10 mg PO DAILY 01/17/21 12/15/23 01/16/21 History (Jardiance) meclizine 25 mg tablet 12.5 mg (1/2 x 25 mg) PO QID PRN 01/17/21 12/15/23 Unknown Rx dizziness #20 tabs Allergies Allergy/AdvReac Type Severity Reaction Status Date / Time clindamycin Allergy ADR-Faintin Verified 11/09/20 13:36 g codeine Allergy ADR-Faintin Verified 11/09/20 13:37 g Taedhvp-VWZ-IwR Reductase Allergy ADV-Weaknes Verified 11/09/20 13:41 Inhibitor s [Ldzurgv-Jow-Uup Reductase Inhibitor] sulfamethoxazole Allergy ADR-Shakine Verified 11/09/20 13:36 [From Bactrim] ss tramadol Allergy ADR-Nausea Verified 11/09/20 13:38 trimethoprim [From Bactrim] Allergy ADR-Shakine Verified 11/09/20 13:36 ss PFSH Acute 2 PFSH: Medical History (Updated 12/19/23 @ 16:53 by Dusty Raymundo MD) Dyslipidemia Essential hypertension Diabetes Vitals/I&O/Wt Last Vital Signs Temp 98.3 F 12/19/23 15:49 Pulse 59 L 12/19/23 15:49 Resp 18 12/19/23 16:12 BP 147/79 12/19/23 15:49 Pulse Ox 100 12/19/23 16:12 O2 Del Method Room Air 12/19/23 15:49 Weight last 48 hrs Weight 138 lb Physical Exam 2 Narrative: GENERAL: In general she is very talkative but not in any great distress. She is complaining of some discomfort in the mid chest which radiates mostly down her left arm and to some degree the right arm HEENT: Exam within normal limits. NECK: Supple without jugular vein distention. The carotid upstroke is normal without bruits. BACK: Exam normal. LUNGS: Clear. HEART: Regular rate and rhythm. ABDOMEN: Benign without organomegaly or tenderness. EXTREMITIES: No edema. NEUROLOGIC: Exam normal. SKIN: Unremarkable. Data 12/19/23 16:03 12/19/23 16:03 A&P Assessment and plan (1) ST elevation myocardial infarction (STEMI): (2) Cervical radiculopathy at C7: (3) Bilateral carpal tunnel syndrome: (4) Peripheral neuropathy: Qualifiers: Peripheral neuropathy type: polyneuropathy, unspecified Qualified Code(s): G62.9 - Polyneuropathy, unspecified (5) Diabetes: (6) Essential hypertension: (7) Dyslipidemia: Plan I believe she is having an early anterior wall myocardial infarction. We will go straight to the catheterization laboratory after the intravenous heparin and Plavix are given. We will make an attempt to start the procedure via the right radial artery however she is a very small woman with small wrists so we may need to use the groin. I have spoken to her about this. Attestations 2 Medical Necessity Statement*: Hospitalization required for management of an acute anterior wall myocardial infarction. I expect her hospital stay to cross 2 midnights. and High Time for a total of 60 minutes, includes reviewing past or interval history, examining/interviewing patient, placing orders, counseling patient/family/other support, updating patient/family/other support, discussing plan of care with staff, communicating with other healthcare providers, documenting encounter and coordinating care Diagnoses ST elevation myocardial infarction (STEMI) I21.3 Cervical radiculopathy at C7 M54.12 Bilateral carpal tunnel syndrome G56.03 Peripheral polyneuropathy G62.9 Peripheral neuropathy type: polyneuropathy, unspecified Diabetes E11.9 Essential hypertension I10 Dyslipidemia E78.5
[2023-12-19 18:13] LABS: Troponin 5 2HR 98.27 ng/L (0-10)
[2023-12-19 18:15] LABS: Troponin 5 2HR Delta 74.27 ABS# (0-10)
--- NOTE | 2023-12-19 18:29 | ECG_ITS ---
[facility] Test Date: 2023-12-19 Pat Name: Oneida Crowell Department: Room: ICU08 Gender: Female Insurance Claims Assistant: : 1940 Requested By: Marta William Order Number: [id number] Drew MD: Wild Miller M.D. Measurements Intervals [place] Rate: 80 P: 61 TX: 224 QRS: -42 QRSD: 91 T: 84 QT: 383 QTc: 444 Interpretive Statements SINUS RHYTHM WITH FIRST DEGREE AV BLOCK LEFT AXIS DEVIATION [QRS AXIS < -30] PATTERN CONSISTENT WITH PULMONARY DISEASE INCOMPLETE RIGHT BUNDLE BRANCH BLOCK [90+ ms QRS DURATION, TERMINAL R IN V1/V2, 40+ ms S IN I/aVL/V4/V5/V6] MINIMAL VOLTAGE CRITERIA FOR LVH, CONSIDER NORMAL VARIANT [MEETS CRITERIA IN ONE OF: R(aVL), S(V1), R(V5), R(V5/V6)+S(V1)] SEPTAL MYOCARDIAL INFARCTION ,AGE INDETERMINATE Compared to ECG 12/19/2023 16:18:10 Left-axis deviation now present Incomplete right bundle-branch block now present Sinus bradycardia no longer present Myocardial infarct finding still present Electronically Signed On 12-20-2023 8:31:07 CDT by Wild Miller M.D. [id number]
[2023-12-19] MEDS: sodium chloride 0.9% 1,000 ML 70 ML IV (19:00)
[2023-12-19 20:43] LABS: Glucose Point of Care 151 mg/dL (70-110)
[2023-12-19] MEDS: gabapentin 100 mg Capsule 200 MG PO (20:46)
[2023-12-19] MEDS: insulin lispro 100 unit/1 mL SUBCUT (20:46)
--- NOTE | 2023-12-19 21:51 | ECG_ITS ---
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 Measurements Intervals [place] Rate: 66 P: 58 [place]: 205 QRS: -40 QRSD: 89 T: 91 QT: 416 QTc: 437 Interpretive Statements SINUS RHYTHM LEFT AXIS DEVIATION [QRS AXIS < -30] PATTERN CONSISTENT WITH PULMONARY DISEASE SEPTAL MYOCARDIAL INFARCTION , OF INDETERMINATE AGE [40+ ms Q WAVE IN V1/V2] MODERATE T-WAVE ABNORMALITY, CONSIDER ANTEROLATERAL ISCHEMIA [-0.1+ mV T-WAVE IN V3-V6] Compared to ECG 12/19/2023 18:29:25 T-wave abnormality now present Possible ischemia now present First degree AV block no longer present Incomplete right bundle-branch block no longer present Myocardial infarct finding still present Electronically Signed On 12-20-2023 8:30:45 CDT by Wild Miller M.D. [id number]
--- NOTE | 2023-12-19 22:17 | PC.NURSE ---
Removed TR band per protocol. Two tegaderm dressings applied.
[2023-12-19 22:44] LABS: Troponin 5 6HR 3640 ng/L (0-10); Troponin 5 6HR Delta 3616 ng/L (0-12)
[2023-12-20] VITALS (17 sets, daily range): BP systolic 100–143; BP diastolic 55–86; PULSE 72–96; RESP 8–25; TEMP 36.5–37.4; O2SAT 89–97
[2023-12-20] MEDS: sodium chloride 0.9% 1,000 ML 70 ML IV (04:49)
[2023-12-20 05:09] LABS: Blood Urea Nitrogen 12 mg/dL (8-23); Calcium 8.4 mg/dL (8.5-10.5); Carbon Dioxide 21 mmol/L (22-29); Chloride 104 mmol/L (98-107); Creatinine Clr Calc Pharmacy 47.7153; Glucose 147 mg/dL (65-115); Osmolality Calculated 282 mOsm/kg (285-295); Sodium 135 mmol/L (136-145)
--- NOTE | 2023-12-20 07:48 | P.PN_ITS ---
Subjective 2 Subjective: Patient was transferred to the first floor early this morning. She has had some nausea overnight but her chest pain resolved as she came out of the catheterization laboratory. She had a complex LAD occlusion with severe diffuse disease. The occlusion was at the point of bifurcation of a diagonal branch. The diagonal is nearly as big as the LAD. The stent was placed across the ostium of the diagonal. The diagonal closed while stenting the LAD. I had a wire in the diagonal and ultimately ended up performing angioplasty of the ostial diagonal in order to keep it open. Wire positioning was difficult. She did have some AIVR after the procedure but has been in sinus rhythm since. Her first troponin was 24, the second 98 and the third 3640. She has had no evidence of congestive heart failure. This morning she has no chest pain and has a mild amount of nausea but otherwise feels fine. She is on aspirin and Plavix. I have held her metformin and him using sliding scale insulin. She completed the Aggrastat. She is intolerant of statins. BUN and creatinine are 12 and 0.8 this morning. Glucose is in the mid 100s. Vitals/I&O/Wt Last Vital Signs Temp 98.1 F 12/20/23 04:00 Pulse 78 12/20/23 06:00 Resp 10 L 12/20/23 06:00 BP 131/78 12/20/23 06:00 Pulse Ox 92 12/20/23 06:00 O2 Del Method Room Air 12/20/23 00:00 12/19/23 12/20/23 12/20/23 22:59 06:59 14:59 Intake Total 1000.000 / 1000.000 Output Total 325 / 325 325 / 650 Balance -325 / -325 675.000 / 350.000 Weight last 48 hrs Weight 137 lb 11.2 oz Weight 136 lb 6 oz Weight 138 lb Physical Exam 2 Narrative: GENERAL: In general she looks and feels well HEENT: Exam within normal limits. NECK: Supple without jugular vein distention. The carotid upstroke is normal without bruits. BACK: Exam normal. LUNGS: Clear. HEART: Regular rate and rhythm. ABDOMEN: Benign without organomegaly or tenderness. EXTREMITIES: No edema. NEUROLOGIC: Exam normal. SKIN: Unremarkable. Data 12/19/23 16:03 12/20/23 03:46 A&P Assessment and plan (1) ST elevation myocardial infarction (STEMI): (2) Essential hypertension: (3) Dyslipidemia: (4) Diabetes: Plan Today I will add back the angiotensin receptor grover and place her on a small dose of a beta-grover. I will also obtain an echocardiogram since I did not do a left ventriculogram last evening. Attestations 2 Medical Necessity Statement*: Continued hospitalization for management of an acute anterior wall myocardial infarction. and Moderate Time for a total of 35 minutes, includes reviewing past or interval history, examining/interviewing patient, placing orders, counseling patient/family/other support, updating patient/family/other support, discussing plan of care with staff, communicating with other healthcare providers, documenting encounter and coordinating care Diagnoses ST elevation myocardial infarction (STEMI) I21.3 Essential hypertension I10 Dyslipidemia E78.5 Diabetes E11.9
--- NOTE | 2023-12-20 07:56 | USCV_ITS ---
Oneida Crowell Age: 83 Gender: F : 1940 Exam Date: 12/20/2023 09:54 Ordering Phys: Dusty Raymundo MD ([email or web address]) Technologist: CT Exam Location: [facility] [place] Indication: BP: 134 / 64 HR: 51 Rhythm: Sinus Technical Quality: Adequate MEASUREMENTS (Male / Female) Normal Values 2D ECHO LVOT Diameter 2.1 cm LV Ejection Fraction MOD 4C 59.1 % LV Ejection Fraction MOD 2C 60.9 % LV Ejection Fraction 2C AL 59.5 % LA Diameter 3.5 cm RA Systolic Volume 4C AL 39.7 ml RA Systolic Volume 4C MOD 39.2 ml LA Sys Volume AL 41.3 cm cubed LA Sys Volume Index AL 26.1 cm cubed/m squared Aorta at Sinotubular Diameter 2.0 cm M-MODE LA Ao Ratio MM 1.4 AV Cusp Separation MM 2.0 cm DOPPLER AV Peak Velocity 105.0 cm/s LVOT Peak Velocity 108.0 cm/s AV Area Cont Eq vti 3.6 cm squared AV Area Cont Eq pk 3.6 cm squared MV Peak Velocity 100.7 cm/s MV Area PHT 3.3 cm squared Mitral E to A Ratio 0.8 TR Peak Velocity 243.0 cm/s TR Peak Gradient 23.6 mmHg TV Peak E Velocity 73.0 cm/s Right Atrial Pressure 3.0 mmHg Pulmonary Artery Systolic Pressu 26.6 mmHg PV Peak Velocity 97.0 cm/s FINDINGS Left Ventricle The ventricle is normal in size. There may be a very minimal amount of hypokinesis of the apex. Otherwise the ventricle is normal. Ejection fraction is well within normal limits 55 to 60%. There does not appear to be hypokinesis of the lateral wall. Grade 1 diastolic dysfunction. Right Ventricle Normal right ventricular size and systolic function. Normal right ventricular systolic pressure. Right Atrium The right atrium is normal in size. Left Atrium The left atrium is normal in size. Mitral Valve Structurally normal mitral valve without significant stenosis or prolapse. There is no mitral regurgitation. Aortic Valve Structurally normal trileaflet aortic valve. No aortic valve stenosis. Mild aortic valve regurgitation. Tricuspid Valve Structurally normal tricuspid valve without significant stenosis or regurgitation. Pulmonary artery systolic pressure is normal. Pulmonic Valve Pulmonic valve not well visualized. Pericardium Normal pericardium without effusion. Aorta Normal ascending aorta dimension. IVC Inferior vena cava not visualized. CONCLUSIONS The ventricle is normal in size. There may be a very minimal amount of hypokinesis of the apex. Otherwise the ventricle is normal. Ejection fraction is well within normal limits 55 to 60%. There does not appear to be hypokinesis of the lateral wall. Grade 1 diastolic dysfunction. Structurally normal trileaflet aortic valve. No aortic valve stenosis. Mild aortic valve regurgitation. Previous study March 08, 2021. No change except the aortic insufficiency is new. Dr. Dusty Raymundo MD (Electronically Signed) Final Date: 20 December 2023 13:33 S
[2023-12-20 08:01] LABS: Glucose Point of Care 135 mg/dL (70-110)
[2023-12-20] MEDS: metoprolol tartrate 25 mg Tablet PO ×2 (08:25→17:26)
[2023-12-20] MEDS: alum-mag-hydroxide-sime 30 mL UDC PO (08:25)
[2023-12-20] MEDS: clopidogrel 75 mg Tablet PO (08:25)
[2023-12-20] MEDS: aspirin 81 mg EC Tablet PO (08:25)
[2023-12-20] MEDS: losartan 50 mg Tablet PO (08:25)
--- NOTE | 2023-12-20 08:32 | ECG_ITS ---
[facility] Test Date: 2023-12-20 Pat Name: Oneida Crowell Department: Room: 112 Gender: Female Quality Compliance Consultant: : 1940 Requested By: Dusty Raymundo Order Number: [id number] Drew MD: Wild Miller M.D. Measurements Intervals [place] Rate: 72 P: 59 NV: 202 QRS: -36 QRSD: 88 T: 97 QT: 400 QTc: 439 Interpretive Statements SINUS RHYTHM LEFT AXIS DEVIATION [QRS AXIS < -30] ST DEVIATION AND MODERATE T-WAVE ABNORMALITY, CONSIDER LATERAL ISCHEMIA [-0.1+ mV T-WAVE IN I/aVL/V5/V6] Compared to ECG 12/19/2023 21:11:48 Myocardial infarct finding no longer present T-wave abnormality still present Possible ischemia still present Electronically Signed On 12-20-2023 10:13:35 CDT by Wild Miller M.D. [id number]
--- NOTE | 2023-12-20 08:45 | PM.MISC ---
Miscellaneous Note Note: I received a call from the nurse a few minutes ago the patient has had the onset of 7 out of 10 chest pain. It is slightly different than the previous chest pain. No physical exam changes. Twelve-lead EKG reveals sinus rhythm with no ST elevation and diffuse T wave changes which are consistent with evolution of the myocardial infarction from last evening. These are present in both the anterior and lateral leads. She had an occlusion of both the LAD and a large diagonal branch supplying the lateral wall. There is nothing which would suggest these vessels have acutely occluded. We will continue to treat her medically.
--- NOTE | 2023-12-20 08:54 | PC.NURSE ---
Patient states that she is having pain/discomfort substernal that radiates to her left side of her neck. Machine Driller notified and obtained a 12 lead ekg. Physician is aware and will order morphine for pain.
--- NOTE | 2023-12-20 09:02 | PC.CHAP ---
Pastoral Care Encounter/Spiritual Assessment Type of Contact [] Declined cistern room working supervisor visit [] Patient/Family/Request visit [] Outpatient visit [] Follow-up visit [] Physician referral [] Code/Alert [] Routine visit [] Staff referral [] Actively dying [] Patient sleeping [] Family support [] [] Out of room [] Palliative care [] [x] Receiving care in room [] Pre-surgical visit [] Trauma [] Long length of stay [] ICU visit [] Other: Relational/Emotional Strength [] Patient feels connected with others/family/visitors/staff [] Distress [] Loneliness/isolation [] Abandonment Spirituality of Patient [] Person of Ale [] Attends Scientologist of their Ale [] Believes in Prayer [] Reads Bible or Lutheran materials [] There are Spiritual issues to be addressed Lead Recreation Assistant Interventions [] Prayer [] Active listening [] Non-anxious presence [] Spiritual/emotional support [] Crisis/trauma care [] Spiritual counseling [] Bereavement support [] Provided bereavement packet [] Provided Bible/devotional materials [] Provided toy/stuffed animal, coloring book to patient or family member [] Provided Communion [] Anointing/[place] [] Salvation [] Completed spiritual assessment [] Other: Impact on Illness or Injury [] Angry [] Fearful [] Anxious [] Often cries [] Exhaustion [] Unable to work [] Unable to attend church [] Unable to walk/stand [] Unable to read [] Unable to drive [] Unable to eat/drink [] Unable to sleep [] Unable to be with family [] Patient intubated [] Other: Summary Time spent with patient
[2023-12-20] MEDS: morphine 4 mg/mL SDV 1 mL 2 MG IVP ×2 (09:25→16:40)
[2023-12-20] MEDS: ondansetron 2 mg/ML SDV 2 mL 4 MG IVP (09:30)
[2023-12-20 12:22] LABS: Glucose Point of Care 143 mg/dL (70-110)
--- NOTE | 2023-12-20 12:38 | ECG_ITS ---
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 Measurements Intervals [place] Rate: 82 P: 58 TN: 210 QRS: -36 QRSD: 101 T: 109 QT: 396 QTc: 464 Interpretive Statements SINUS RHYTHM WITH FIRST DEGREE AV BLOCK LEFT AXIS DEVIATION [QRS AXIS < -30] PATTERN CONSISTENT WITH PULMONARY DISEASE MODERATE T-WAVE ABNORMALITY, CONSIDER LATERAL ISCHEMIA [-0.1+ mV T-WAVE IN I/aVL/V5/V6] Compared to ECG 12/20/2023 08:37:28 First degree AV block now present T-wave abnormality still present Possible ischemia still present Electronically Signed On 12-20-2023 15:28:36 CDT by Wild Miller M.D. [email or web address]/[id number]
--- NOTE | 2023-12-20 13:15 | PM.MISC ---
Miscellaneous Note Note: I have received multiple phone calls from the nurse over the last 2 hours. The patient continues to have severe chest pain now a 10 on a 10 scale. She has had 2 EKGs over time which have not changed. The ST segments in the anterior lateral leads have not changed and she has no ST elevation. Despite that she says she has unrelenting resting chest pain that worsens when she takes a deep breath. She is a poor historian but she thinks that it may not be the same pain she had last night with a myocardial infarction. She is also dropped her oxygen saturations below 90 at times. She has been placed on oxygen. The nurse states that she is a bit pale and has had some crackles in her lungs. Morphine did not help the discomfort. She says she is weak and nauseated and does not want to have anything to eat. The only thing I have to offer her is repeat coronary angiography to assess the LAD and diagonal. We will arrange for that now.
--- NOTE | 2023-12-20 13:49 | XACV_ITS ---
Exam Room: 2 Ht: 157 cm Wt: 62 kg BSA: 1.66 m2 Gender: Female : 1940 Any Known Allergies: Other Exam Priority: Routine Procedure(s): Procedure Description: Diagnostic procedure Procedure Description: PCI procedure Procedure Description: Drug Eluting Coronary Stent Procedure Description: Coronary Angiography Breanne STOVER; Diagnostic Cath Status: Urgent Diagnostic Findings * Patient with an acute anterior wall IA last evening with occlusion of the mid LAD and a large diagonal. Double wiring of those 2 vessels resulted in stenting of the LAD, jailing of the diagonal, subsequent reclosure of the diagonal and then angioplasty of the diagonal to open both vessels. The end result was quite good. Incidental finding was made of a distal circumflex lesion of 80 to 85% in a third obtuse marginal, that was not intervened upon last evening. Patient did well overnight and this morning began to have severe recurrent chest pain which she could not adequately describe. This persisted. EKG this morning did not reveal any ST changes. In fact the EKG this morning was better than the one yesterday. Despite this, the pain persisted throughout the day with serial EKGs revealing no change. I decided to bring her back to the catheterization laboratory due to the unrelenting severe 10 out of 10 pain. * Left main is normal. The LAD is widely patent with absolutely no thrombus and no lesions. The diagonal is likewise widely patent. Both vessels exhibit MIREILLE-3 flow. Circumflex is essentially normal with the exception of the previously noted third obtuse marginal lesion of about 80 to 85%. PCI Status: Elective PCI LVEF Assessed: No PCI Indication: Staged PCI Interventional Findings * I decided to intervene on the circumflex and she will have to have this done at some point. She tolerated the stents well last night and they are widely patent as is the diagonal which underwent angioplasty. I primarily stented the third obtuse marginal branch with a 2.5 x 12 mm stent. The end result was excellent. Decision for PCI with Surgical Consult: No PCI for Multi-vessel Disease: No Conclusions 1. Recurrent chest pain and wide patency of the LAD and diagonal from last evening. Staged stenting of the third obtuse marginal branch with good result. Recommendations * Medical treatment now going forward. Interventional RX Recommendation: PCI w/o planned CABG Diagnostic RX Recommendation: PCI w/o planned CABG Anticoagulation: Heparin Pressures Phase:Rest AO : 135 / 71 ( 99 ) @ 3:22:00 PM Clinical Evaluation EBL: 5mL-10mL Procedural Details Procedure Consent Obtained. Admit Source: In Patient. Pre-Procedure Time Out. Identified patient by full name and date of as verbalized by the patient/guarantor. Does the consent match the physician's order: Yes. Accurate & Complete Informed Consent: Yes. Inpatient/Outpatient History & Physical on Chart: Yes. If H&P is completed, is and addenduem needed: No; If yes, is the addendum complete: N/A. Visualize and Verify Site with Patient/Guarantor: N/A. Relevant Radiology Images available: Yes. The risks, benefits, and alternatives of sedation and/or procedure were discussed by physician. The patient agrees to continue. Procedure started. [facility] Clinical Fraility Score: 5: Mildly Frail. Bottom Bleacher Indications: Worsening Angina. Chest Pain Symptom Assessment: Atypical Angina. Correct patient, site and procedure confirmed by cath team. Current diagnosis: Chest Pain. PERRLA. Strong, equal hand lead quality control technician bilaterally. Lungs clear x 5 lobes. IV Fluids: 0.9% NaCl at KVO. 0 mL infused prior to manager labor delivery. IV Site on Arrival: 20 gauge in the right hand. IV Site on Arrival: 20 gauge in the left anticubital. Oxygen started at 4liters/min via nasal canula. bilateral groins was prepped with chloroprep then draped in the usual sterile fashion. Physician notified. Baseline sample Acquired. HR: 88 BPM. Physician arrived. Physician scrubbed in. Immediate Pre-Procedure Time Out. Correct Patient: Yes; Correct Procedure: Yes; Correct Site: Yes; Correct Patient Position: Yes; Correct Supplies: Yes; Dried Flammable Prep: Yes; Blood Products Available: No;. Lidocaine 1% infiltrated to the right groin. Lidocaine 1% infiltrated to the right groin. Arterial access obtained. A 5 swiss JL4 catheter in over wire. Multiple views taken of left coronary artery. Catheter removed over the standard wire. 6 swiss XB 3 guide catheter was inserted over the wire. [place] guidewire was advanced through the guide catheter to lesion in the 3rd OM. Add inventory:. Stent inserted to lesion in the third OM. Inflation Number : 1 Maria M Garcia YADI 2.5X12 PAMELLA -Lot Number# [id number] EXP 04-28-26 was prepped and advanced across the 3rd Ob Kate. The stent was deployed at 12 BONNY for 0:25 seconds. Results checked. Stent balloon out over wire. Wire out. Guide catheter out. A Suture was successful obtaining hemostatsis at the Right Femoral artery insertion site. Sheath(s) sutured into position with 2-0 silk and sterile 4x4's and Op-site applied over the site. No oozing or signs and symptoms of hematoma noted. Arterial sheath flushed and connected to tranducer and pressure bag with heparinized saline. Post Procedure: Pulses reassessed and unchanged. PERRLA. Strong, equal hand lead quality control technician bilaterally. No VTE prophylaxis required. Medication's Wasted: Lidocaine 1% = 2 mL. Medication's Wasted: Heparin = 1000 unit. Medication's Wasted: Other = Versed 1 mg. Medication's Wasted: Other = Fentanyl 75mcg. Total IV fluids: 0 mL. Post-op diagnosis: CAD. Complications: None. Estimated blood loss: 5mL-10mL. Responsiveness - Normal response to verbal stimuli; alert and oriented, PERRLA. Airway - Unaffected, no intervention required; spontaneous ventilation. Circulation: W/N/L, pulses unchanged. Nausea/Vomiting: No. Procedure completed. Patient transferred by bed to 1st floor. Vital chart was stopped. Access Site Site: Right Femoral artery Sheath Size: 6 Fr Hemostasis Method: Suture Hemostasis Success: Successful Procedure Medications Start: 2:06 PM Stop: 2:06 PM Medication: Versed Amount: 1 mg Route: I.V. Start: 2:10 PM Stop: 2:10 PM Medication: Fentanyl Amount: 25 mcg Route: I.V. Start: 2:22 PM Stop: 2:22 PM Medication: Heparin Amount: 3000 units Route: I.V. I, the attending physician, have reviewed and verified all procedure medications. Yes, all medications given per verbal order History/Risk Factors Hypertension: No Dyslipidemia: Yes Peripheral Arterial Disease (PAD): No Myocardial Infarction (IA): Yes Obesity: No Renal Disease: No Tobacco Use: Former Prior Interventions PCI: Yes CABG: No Valve Surgery: No Date of PCI: 12/19/2023 Report Signatures Finalized by Dr. Dusty Raymundo MD on 12/20/2023 02:46 PM
--- NOTE | 2023-12-20 15:00 | PC.NURSE ---
Patient continued to have chest pain throughout the day so it was decided that patient would go back to cath lab radiological technologist. Patient received stent to the circ, and arrived back to the floor via bed at 1445 with a sheath sutured in place to the right groin. There is no bleeding or hematoma family is at bedside andd patient has been instructed regarding activity restrictions. Nurse will continue to monitor q15m
[2023-12-20] MEDS: pantoprazole 40 mg SDV IVP (16:09)
[2023-12-20 17:22] LABS: Glucose Point of Care 156 mg/dL (70-110)
[2023-12-20 22:09] LABS: Glucose Point of Care 176 mg/dL (70-110)
[2023-12-20] MEDS: insulin lispro 100 unit/1 mL SUBCUT (22:11)
[2023-12-20] MEDS: gabapentin 100 mg Capsule 200 MG PO (22:11)
[2023-12-21] VITALS (8 sets, daily range): BP systolic 93–104; BP diastolic 50–67; PULSE 87–98; RESP 13–18; TEMP 36.6–37.2; O2SAT 93–95
--- NOTE | 2023-12-21 04:57 | PC.NURSE ---
around midnight, pt was ready to get up post cath. nurse assisted pt up out of bed to use the bedside commode. she was slightly light headed but stated she had to go to the bathroom now. no issues with the bathroom. site (right femoral) dressing was dry and with no hematoma or bruising noted. pt complained of no pain during transfer from bed to beside commode to the sink to wash hands. we then both proceed to the door to walk but pt stated she was getting to dizzy for that. pt walked back to the bed with no incident. site still remains good. distal pulse weak but palpable on right foot. (same as prior to cath procedure). will continue to monitor site.
[2023-12-21 06:49] LABS: Glucose Point of Care 173 mg/dL (70-110)
[2023-12-21] MEDS: insulin lispro 100 unit/1 mL SUBCUT (08:26)
[2023-12-21] MEDS: aspirin 81 mg EC Tablet PO (08:27)
[2023-12-21] MEDS: pantoprazole 40 mg SDV IVP (08:27)
[2023-12-21] MEDS: clopidogrel 75 mg Tablet PO (08:27)
--- NOTE | 2023-12-21 09:07 | PC.NURSE ---
Patients blood pressures have been soft sense around midnight 12/20. At 8:01 her automatic blood pressure cuff read 86/49 a manual blood pressure was obtained with a reading of 80/38. Staff Mine Warfare Officer notified. Orders to hold morning dose of metoprolol and losartan were given verbally as well as increase PO water intake. Patients blood pressure continue to be low. Patient does not report dizziness or lightheadedness at this time. Nurse will continue to monitor and report any changes.
--- NOTE | 2023-12-21 09:53 | P.DS_ITS ---
Discharge Providers Date of Admission: 12/19/23 18:09 Date of Discharge: December 21, 2023 Attending Provider at Admission: Dusty Raymundo MD Attending Provider at Discharge: Dusty Raymundo MD Primary Care Provider: Melvin Chinchilla MD Diagnoses at Discharge Discharge Diagnosis (1) ST elevation myocardial infarction (STEMI): Status: Acute (2) Essential hypertension: Status: Acute (3) Dyslipidemia: Status: Acute (4) Diabetes: Status: Acute Reason for Visit Reason for Visit: CHEST PAIN Brief History: Patient arrived at the emergency room with chest discomfort which was fairly typical for injury. Her initial EKG showed some subtle findings in the anterior precordial leads but no classic ST elevation. Her second EKG however was much more suspicious. A STEMI alert was then called and she was taken to the catheterization laboratory from the emergency room. Hospital Course Hospital Course The initial procedure was done from the right radial artery. The LAD was closed in the proximal portion. Distal to the point of closure there was a diagonal branch which was about the same size as the LAD. I put a wire in both vessels. It was difficult to wire the arteries. Ultimately I placed 2 stents in the LAD end to end. The diagonal branch was jailed and closed completely when the stents were placed. I had a wire in the diagonal. I then went down the diagonal with a balloon and did a balloon angioplasty opening the diagonal branch. There was reasonable flow at the end of the procedure. Incidental finding was a significant stenosis in the third obtuse marginal branch of the circumflex. The dominant right coronary artery was normal. I did not perform ventriculography during the angiogram. The next day her troponin was significantly high. She began to have chest discomfort again at 9:00 in the morning the following day. EKGs actually looked better the second day than when she came in. However, despite this she began to have worse and worse pain over the next several hours. At about 1:00 in the afternoon she had 10 out of 10 chest pain. Once again, there were no EKG changes. I was not suspicious that the vessels were occluded but because of her symptoms I took her back to the catheterization laboratory. This procedure was done via the right groin. The LAD and diagonal were patent with MIREILLE-3 flow and look perfectly normal. While I was there I stented the obtuse marginal branch that had been noted the night before so she would not have to come back. For the remainder of her hospitalization she had odd symptoms of chest discomfort, tugging in her neck, weakness. I reinstituted her angiotensin receptor grover as well as added a beta-grover. On the morning of discharge her blood pressure was down in the 80s but she was feeling perfectly fine. Therefore, upon her discharge I will continue the beta-grover but hold the losartan. She is intolerant of statins. At the time of discharge there were no complications in either entry site of the right radial or right common femoral artery. No bleeding, hematoma or other problems. It is noteworthy that the echocardiogram was essentially normal. There were no wall motion disturbances in the anterior lateral gonzalez. This echo was done the morning after the initial procedure during the time that she was having chest pain. Physical Exam Narrative: GENERAL: In general she looks and feels well HEENT: Exam within normal limits. NECK: Supple without jugular vein distention. The carotid upstroke is normal without bruits. BACK: Exam normal. LUNGS: Clear. HEART: Regular rate and rhythm. ABDOMEN: Benign without organomegaly or tenderness. EXTREMITIES: No edema. The right radial artery area is flat, dry and without bleeding. The right groin is similar. NEUROLOGIC: Exam normal. SKIN: Unremarkable. Discharge Data Studies Completed and Pending Completed Studies During Hospitalization Category Date Time Status HISTORICAL ARCHEOLOGIST request for service Routine Exams 12/20/23 13:49 Completed HISTORICAL ARCHEOLOGIST request for service Stat Exams 12/19/23 16:27 Completed XR chest 1V portable [id number] Stat Exams 12/19/23 15:51 Completed US echo complete [CV. echo complete* [id number]] Routine Ultrasound 12/20/23 07:56 Completed Radiology Impressions Chest X-Ray 12/19/23 15:51 IMPRESSION: No acute findings. Laboratory Results WBC 7.27 10^3/uL (3.29-11.43) 12/19/23 16:03 RBC 3.89 10^6/uL (3.85-5.65) 12/19/23 16:03 Hgb 12.40 g/dL (11.27-16.99) 12/19/23 16:03 Hct 37.4 % (36-47) 12/19/23 16:03 MCV 96.1 fl (85-98) 12/19/23 16:03 MCH 31.9 pg (27-33) 12/19/23 16:03 MCHC 33.2 g/dL (30-55) 12/19/23 16:03 RDW 12.7 % (12.1-15.1) 12/19/23 16:03 Plt Count 173 10^3/cmm (157-399) 12/19/23 16:03 MPV 10.0 fL (7.4-10.4) 12/19/23 16:03 Neut % (Auto) 52.6 % 12/19/23 16:03 Lymph % (Auto) 35.6 % 12/19/23 16:03 [place] % (Auto) 8.7 % 12/19/23 16:03 Eos % (Auto) 1.7 % 12/19/23 16:03 Baso % (Auto) 0.7 % 12/19/23 16:03 Neut # (Auto) 3.83 10^3/uL (1.8-7.7) 12/19/23 16:03 Lymph # (Auto) 2.6 10^3/uL (0.8-4.8) 12/19/23 16:03 [place] # (Auto) 0.6 10^3/uL (0.2-0.9) 12/19/23 16:03 Eos # (Auto) 0.1 10^3/uL (0.0-0.8) 12/19/23 16:03 Baso # (Auto) 0.1 10^3/uL (0.0-0.1) 12/19/23 16:03 Nucleated RBC % (auto) 0 % 12/19/23 16:03 Nucleated RBCs # 0.0 /100WBC 12/19/23 16:03 Sodium 135 mmol/L (136-145) L 12/20/23 03:46 Potassium 5.0 mmol/L (3.5-5.1) 12/20/23 03:46 Chloride 104 mmol/L (98-107) 12/20/23 03:46 Carbon Dioxide 21 mmol/L (22-29) L 12/20/23 03:46 Anion Gap 15.0 (5-19) 12/20/23 03:46 BUN 12 mg/dL (8-23) 12/20/23 03:46 Creatinine 0.8 mg/dL (0.5-0.9) 12/20/23 03:46 GFR Calculation Not Reportable 12/20/23 03:46 Glucose 147 mg/dL (65-115) H 12/20/23 03:46 POC Glucose 173 mg/dL (70-110) H 12/21/23 06:45 Calculated Osmolality 282 mOsm/kg (285-295) L 12/20/23 03:46 Calcium 8.4 mg/dL (8.5-10.5) L 12/20/23 03:46 Total Bilirubin 0.2 mg/dL (0.15-1.2) 12/19/23 16:03 AST 18 U/L (0-32) 12/19/23 16:03 ALT 15 U/L (0-33) 12/19/23 16:03 Alkaline Phosphatase 60 U/L (35-105) 12/19/23 16:03 Troponin T Baseline 24 ng/L (0-10) H 12/19/23 16:03 Troponin T 120 Minute 98.27 ng/L (0-10) H 12/19/23 17:48 Delta Troponin T 74.27 ABS# (0-10) H* 12/19/23 17:48 Troponin T Hi Sens 6Hr 3640 ng/L (0-10) H 12/19/23 21:45 Troponin T Hi Sens 6Hr Delta 3616 ng/L (0-12) H* 12/19/23 21:45 Total Protein 6.4 g/dL (6.6-8.7) L 12/19/23 16:03 Albumin 4.1 g/dL (3.5-5.2) 12/19/23 16:03 Globulin 2.3 g/dL (1.3-4.6) 12/19/23 16:03 Procedures Performed Coronary angiography twice. Stenting of the LAD, angioplasty of the diagonal and subsequent stenting of the circumflex marginal branch. Vitals Last Vital Signs Temp 97.8 F 12/21/23 07:15 Pulse 90 12/21/23 07:15 Resp 17 12/21/23 07:15 BP 94/58 12/21/23 07:15 Pulse Ox 95 12/21/23 07:49 O2 Del Method Nasal Cannula 12/21/23 07:49 O2 Flow Rate 1 12/21/23 07:49 Discharge Plan Discharge Patient Disposition: Home Condition: Stable Prescriptions: New clopidogrel 75 mg Tablet 75 mg PO DAILY Qty: 90 0RF nitroglycerin 0.4 mg Tablet, Sublingual 0.4 mg sublingual Q5M PRN (Reason: Chest Pain) Qty: 25 0RF aspirin 81 mg Tablet,Delayed Release (Dr/Ec) 81 mg PO DAILY Qty: 100 3RF empagliflozin 10 mg Tablet 10 mg PO DAILY Qty: 30 0RF gabapentin 100 mg Capsule 200 mg PO BEDTIME Qty: 30 0RF hydrochlorothiazide 25 mg Tablet 12.5 mg PO DAILY PRN (Reason: swelling) Qty: 30 0RF metoprolol tartrate 25 mg Tablet 25 mg PO BID Qty: 180 0RF Continued aspirin 81 mg tablet,delayed release (DR/EC) 81 mg PO DAILY Qty: 30 0RF alendronate 70 mg tablet 70 mg PO Q7D Rx Instructions: take on Tuesday omeprazole 20 mg capsule,delayed release(DR/EC) 20 mg PO DAILY multivitamin Tablet 1 tab PO DAILY flaxseed oil 1,000 mg Capsule 1,000 mg PO BID Rx Instructions: administer with meals gabapentin 800 mg tablet 800 mg PO BEDTIME vitamin B complex Tablet 1 tab PO DAILY magnesium 250 mg Tablet 250 mg PO DAILY fluticasone propionate 50 mcg/actuation spray,suspension 1 spray INTRANASAL DAILY Vitamin D3 50 mcg (2,000 unit) Capsule 50 mcg PO DAILY Ozempic 1 mg/dose (4 mg/3 mL) pen injector 1 mg SUBCUT Q7D Discontinued losartan 50 mg tablet 50 mg PO DAILY Discharge Orders: Discharge Order (Routine); Ordered 12/21/23 Ordered By: Dusty Raymundo Referrals: Melvin Chinchilla MD [Primary Care Provider] - Felicia Miller FNP [Nurse Practitioner] - 7-10 days (Check right groin and right radial artery area. Check chemistry panel.) Discharge Diet: Diabetic Discharge Activity: Increase activity as tolerated and Limit activity as instructed Patient Instructions: Opioid Safety Activity Restrictions/Additional Instructions: No lifting over 5 pounds for 2 days Discharge Attestations Time Spent in Discharge Care*: greater than 30 min Quality Metrics Clinical Quality Measures [ Acute Myocardial Infaction { Clinical Trial Participant: No; Contraindication to aspirin: None; Aspirin prescribed; Contraindication to statin: Adverse reaction to drug; Contraindication to PCI: None; PCI performed;}] Coding Level of Care Code 27442 Total time (in minutes) for Discharge: [address] elevation myocardial infarction (STEMI) I21.3 Essential hypertension I10 Dyslipidemia E78.5 Diabetes E11.9
--- NOTE | 2023-12-21 13:06 | PC.SOCIAL ---
IMM Update Pg 2 of IMM Updated and reviewed with patient, who verbalized understanding. Copy provided.
== END 2023-12-21 13:42 | disposition home or self-care (01) | DRG 322 ==
LOC: ER 16:30 → CCL 16:45 → ICU 18:10 → CSU 12-20 07:12
PROVIDERS: Admitting Provider Internal Medicine Cardiovascular Disease; Emergency Provider Emergency Medicine; PCP Family Medicine; Visit Provider Internal Medicine Cardiovascular Disease
PROC: 027035Z Dilation of Coronary Artery, One Artery with Two Drug-eluting Intraluminal Devices, Percutaneous Approach (ICD-10-PCS; principal; 2023-12-19 17:00)
PROC: 027035Z Dilation of Coronary Artery, One Artery with Two Drug-eluting Intraluminal Devices, Percutaneous Approach (ICD-10-PCS; 2023-12-19 17:00)
PROC: 027034Z Dilation of Coronary Artery, One Artery with Drug-eluting Intraluminal Device, Percutaneous Approach (ICD-10-PCS; principal; 2023-12-20 14:00)
DX: I21.09 ST elevation (STEMI) myocardial infarction involving other coronary artery of anterior wall (principal); I25.10 Atherosclerotic heart disease of native coronary artery without angina pectoris; Z87.891 Personal history of nicotine dependence; E11.42 Type 2 diabetes mellitus with diabetic polyneuropathy; Z79.84 Long term (current) use of oral hypoglycemic drugs; I10 Essential (primary) hypertension; E78.5 Hyperlipidemia, unspecified; M54.12 Radiculopathy, cervical region; G56.03 Carpal tunnel syndrome, bilateral upper limbs
CPT/HCPCS: 36415; 36416; 71045; 80048; 80053; 82962; 84484; 85025; 92920; 93005; 93306; 93454; 96365; 96372; 96374; 96375; 96376; 99152; 99153; 99285; C1725; C1769; C1874; C1887; C1894; C9113; C9600; J1644; J1815; J2250; J2270; J2405; J3010; J3490; J7030; Q9967

== ENCOUNTER → 2024-01-04 13:39 | Outpatient (BNVA) | payer MEDICARE, SELFPAY | PROVIDERS: PCP Family Medicine; Visit Provider Nurse Practitioner Family | DX: I25.10 Atherosclerotic heart disease of native coronary artery without angina pectoris (principal); Z87.891 Personal history of nicotine dependence; I10 Essential (primary) hypertension | CPT/HCPCS: 99213 ==

== ENCOUNTER → 2024-03-05 14:49 | Outpatient (BNVA) | payer MEDICARE, SELFPAY | PROVIDERS: PCP Family Medicine; Visit Provider Internal Medicine Cardiovascular Disease | DX: I21.3 ST elevation (STEMI) myocardial infarction of unspecified site (principal) | CPT/HCPCS: 36415; 80061 ==

== ENCOUNTER 2024-08-29 13:18 | Emergency (ER) | payer MEDICARE, SELFPAY ==
[2024-08-29 13:19] VITALS: BP 141/69; PULSE 67; RESP 16; TEMP 36.7; O2SAT 99
--- NOTE | 2024-08-29 13:32 | ECG_ITS ---
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 Gauge Brakeman: : 1940 Requested By: Marta William Order Number: [id number] Reading MD: Measurements Intervals [place] Rate: 69 P: 69 MA: 196 QRS: -46 QRSD: 95 T: 88 QT: 390 QTc: 420 Interpretive Statements SINUS RHYTHM LEFT ANTERIOR FASCICULAR BLOCK [QRS AXIS <= -45, QR IN I, RS IN II] LEFT VENTRICULAR HYPERTROPHY AND ST-T CHANGE [VOLTAGE CRITERIA PLUS ST/T ABNORMALITY] POSSIBLE SEPTAL MYOCARDIAL INFARCTION , OF INDETERMINATE AGE [30 ms Q WAVE IN V1/V2] No previous ECG available for comparison [id number]
--- NOTE | 2024-08-29 13:32 | XRR_ITS ---
PROCEDURE INFORMATION: Exam: XR Chest Exam date and time: 08/29/2024 1:45 PM Age: 84 years old Clinical indication: Pain; Angina pectoris; Additional info: Cp TECHNIQUE: Imaging protocol: Radiologic exam of the chest. Views: 1 view. COMPARISON: CR XR chest 1V portable [id number] 12/19/2023 4:10 PM FINDINGS: Lungs: Unremarkable. No consolidation. Pleural spaces: Unremarkable. No pleural effusion. No pneumothorax. Heart/Mediastinum: Unremarkable. No cardiomegaly. Bones/joints: Unremarkable. XR/XR chest 1V portable [id number] IMPRESSION: No acute findings.
--- NOTE | 2024-08-29 13:38 | W.ED.CHESTPA ---
HPI - Chest Pain General: Chief Complaint: Chest Pain Stated Complaint: chest pain Time Seen by Provider: 08/29/24 13:18 Source: patient and EMS Mode of arrival: EMS Limitations: no limitations History of Present Illness: 84-year-old female states she is having some chest pain earlier this morning. She states she is in the process of moving has been moving a lot of boxes yesterday and felt she may have overdone it states today she is having some fatigue and had some mild chest pains this morning states she took a nitro and aspirin and is currently pain-free. She denies any shortness of breath denies any cough. She did have a stent placed last December. Associated symptoms: Deny abdominal pain, dyspnea, fever(s), nausea or vomiting Related Data Home Medications ?Medication ?Instructions ?Recorded ?Confirmed alendronate 70 mg tablet 70 mg PO Q7D 11/09/20 08/29/24 omeprazole 20 mg capsule,delayed 20 mg PO DAILY 11/09/20 08/29/24 release cholecalciferol (vitamin D3) 50 50 mcg PO DAILY 12/20/23 08/29/24 mcg (2,000 unit) capsule (Vitamin D3) flaxseed oil 1,000 mg capsule 1,000 mg PO BID 12/20/23 08/29/24 fluticasone propionate 50 1 spray intranasal DAILY 12/20/23 08/29/24 mcg/actuation nasal spray,suspension magnesium 250 mg tablet 250 mg PO DAILY 12/20/23 08/29/24 multivitamin 1 tab PO DAILY 12/20/23 08/29/24 semaglutide 1 mg/dose (4 mg/3 mL) 1 mg SUBCUT Q7D 12/20/23 08/29/24 subcutaneous pen injector (Ozempic) vitamin B complex 1 tab PO DAILY 12/20/23 08/29/24 clopidogrel 75 mg tablet 75 mg PO DAILY 08/29/24 08/29/24 gabapentin 800 mg tablet 800 mg PO BEDTIME 08/29/24 08/29/24 Previous Rx's ?Medication ?Instructions ?Recorded aspirin 81 mg tablet,delayed 81 mg PO DAILY #100 tabs 12/21/23 release nitroglycerin 0.4 mg sublingual 0.4 mg sublingual Q5M PRN Chest 12/21/23 tablet Pain #25 tabs hydrochlorothiazide 25 mg tablet 12.5 mg (2 x 25 mg) PO DAILY PRN 01/16/24 swelling #90 tabs ezetimibe 10 mg tablet 10 mg PO DAILY #90 tabs 03/06/24 Allergies Allergy/AdvReac Type Severity Reaction Status Date / Time clindamycin Allergy ADR-Faintin Verified 03/05/24 13:42 g codeine Allergy ADR-Faintin Verified 03/05/24 13:42 g [id number]-[id number] Reductase Allergy ADV-Weaknes Verified 03/05/24 13:42 Inhibitor (Xbekbhn-Dqq-Ulo s Reductase Inhibitor) sulfamethoxazole (From Allergy ADR-Shakine Verified 03/05/24 13:42 Bactrim) ss tramadol Allergy ADR-Nausea Verified 03/05/24 13:42 trimethoprim (From Bactrim) Allergy ADR-Shakine Verified 03/05/24 13:42 ss Review of Systems Const: Denies: fever(s), chills, body aches or change in appetite ENMT: Denies: throat pain or dental pain Card: Reports: chest pain Resp: Denies: dyspnea GI: Denies: abdominal pain, nausea, vomiting or diarrhea Musc: Denies: neck pain or back pain Skin/Breast: Denies: rash Neuro: Denies: headache(s) PFSH ED PFSH: Medical History Coronary artery disease Dyslipidemia Essential hypertension Diabetes Social History Smoking and tobacco/nicotine status: never used tobacco/nicotine Physical Exam Const: COMMON NORMALS: no acute distress, patient oriented x3 and healthy appearing HENMT: COMMON NORMALS: normocephalic and atraumatic HEAD & SCALP: normocephalic and atraumatic Eye: COMMON NORMALS: Equal, round and reactive pupils present and EOMs intact bilaterally PUPIL: Yes Equal, round and reactive pupils present Neck/C-Spine: COMMON NORMALS: full ROM and supple Chest: COMMONS NORMALS: normal inspection of the chest and normal palpation of entire chest wall Resp: COMMON NORMALS: normal respiratory effort, No retractions, No use of accessory muscles and clear to auscultation bilaterally AUSCULTATION: clear to auscultation bilaterally Cardio: COMMON NORMALS: regular rate, regular rhythm and No murmurs present (Cardio) RATE: regular rate RHYTHM: regular rhythm GI: COMMON NORMALS: Normal to inspection, nondistended, normoactive bowel sounds present, Soft to palpation, non-tender and no masses PALPATION: Yes Soft to palpation Extremity: COMMON NORMALS: normal to inspection and full ROM Neuro: COMMON NORMALS: patient oriented x3, moves all extremities and no focal motor deficits Psych: COMMON NORMALS: mental status grossly normal, Normal thought process present and cooperative THOUGHT PROCESS: Normal thought process present Skin: COMMON NORMALS: no rashes or lesions noted and no wounds GENERAL SKIN EXAM: no rashes or lesions noted Course Vital Signs: Vital signs: Vital Signs Temperature 98.0 F 08/29/24 13:19 Pulse Rate 70 08/29/24 15:32 Respiratory Rate 15 08/29/24 15:32 Blood Pressure 140/70 08/29/24 15:32 Pulse Oximetry 94 08/29/24 15:32 Oxygen Delivery Me thod Room Air 08/29/24 13:19 MDM - Chest Pain Medical Decision Making Patient presents for chest pain since resolved her pains atypical in nature initial repeat troponins here negative no signs of ACS she has no signs of pulmonary embolism or aortic dissection she is to follow-up with her PCP return if worsening she understands agrees to plan. Medical Records I reviewed the patient's medical records. Lab Data I reviewed the patient's lab results. 08/29/24 12:58 08/29/24 12:58 Radiology Impressions Chest X-Ray 08/29/24 13:32 IMPRESSION: No acute findings. Laboratory Results WBC 5.17 10^3/uL (3.29-11.43) 08/29/24 12:58 RBC 4.26 10^6/uL (3.85-5.65) 08/29/24 12:58 Hgb 13.40 g/dL (11.27-16.99) 08/29/24 12:58 Hct 40.3 % (36-47) 08/29/24 12:58 MCV 94.6 fl (85-98) 08/29/24 12:58 MCH 31.5 pg (27-33) 08/29/24 12:58 MCHC 33.3 g/dL (30-55) 08/29/24 12:58 RDW 12.6 % (12.1-15.1) 08/29/24 12:58 Plt Count 193 10^3/cmm (157-399) 08/29/24 12:58 MPV 10.4 fL (7.4-10.4) 08/29/24 12:58 Neut % (Auto) 51.6 % 08/29/24 12:58 Lymph % (Auto) 36.2 % 08/29/24 12:58 Mathews % (Auto) 9.9 % 08/29/24 12:58 Eos % (Auto) 1.5 % 08/29/24 12:58 Baso % (Auto) 0.6 % 08/29/24 12:58 Neut # (Auto) 2.67 10^3/uL (1.8-7.7) 08/29/24 12:58 Lymph # (Auto) 1.9 10^3/uL (0.8-4.8) 08/29/24 12:58 Mathews # (Auto) 0.5 10^3/uL (0.2-0.9) 08/29/24 12:58 Eos # (Auto) 0.1 10^3/uL (0.0-0.8) 08/29/24 12:58 Baso # (Auto) 0.0 10^3/uL (0.0-0.1) 08/29/24 12:58 Nucleated RBC % (auto) 0 % 08/29/24 12:58 Nucleated RBCs # 0.0 /100WBC 08/29/24 12:58 PT 13.00 SECONDS (12.1-14.9) 08/29/24 12:58 INR 0.92 (0.8-1.2) 08/29/24 12:58 Sodium 141 mmol/L (136-145) 08/29/24 12:58 Potassium 4.4 mmol/L (3.5-5.1) 08/29/24 12:58 Chloride 103 mmol/L (98-107) 08/29/24 12:58 Carbon Dioxide 27 mmol/L (22-29) 08/29/24 12:58 Anion Gap 15.4 (5-19) 08/29/24 12:58 BUN 13 mg/dL (8-23) 08/29/24 12:58 Creatinine 0.7 mg/dL (0.5-0.9) 08/29/24 12:58 GFR Calculation Not Reportable 08/29/24 12:58 Glucose 79 mg/dL (65-115) 08/29/24 12:58 Calculated Osmolality 291 mOsm/kg (285-295) 08/29/24 12:58 Calcium 9.7 mg/dL (8.5-10.5) 08/29/24 12:58 Total Bilirubin 0.3 mg/dL (0.15-1.2) 08/29/24 12:58 AST 27 U/L (0-32) 08/29/24 12:58 ALT 15 U/L (0-33) 08/29/24 12:58 Alkaline Phosphatase 58 U/L (35-105) 08/29/24 12:58 Troponin T Baseline 15 ng/L (0-10) H 08/29/24 14:39 Delta Troponin T 0.38 ABS# (0-10) 08/29/24 16:30 Total Protein 7.5 g/dL (6.6-8.7) 08/29/24 12:58 Albumin 4.7 g/dL (3.5-5.2) 08/29/24 12:58 Globulin 2.8 g/dL (1.3-4.6) 08/29/24 12:58 Lipase 69 U/L (13-60) H 08/29/24 12:58 All radiology interpretation(s) finalized by discharge EKG Data EKG 1: I personally reviewed and interpreted this EKG as follows: EKG interpretation date: 08/29/24 EKG interpretation time: 13:21 Interpretation: nsr hr [address] elevation qrs 95qtc 409 EKG 2: I personally reviewed and interpreted this EKG as follows: EKG interpretation date: 08/29/24 EKG interpretation time: 15:10 Interpretation: nsr hr [address] elevation qrs 84 qtc 407 Discharge Plan Discharge Patient Disposition: Home Clinical Impression: Chest pain Condition: Stable Prescriptions: No Action hydrochlorothiazide 25 mg tablet 12.5 mg PO DAILY PRN (Reason: swelling) Qty: 90 2RF ezetimibe 10 mg tablet 10 mg PO DAILY Qty: 90 6RF alendronate 70 mg tablet 70 mg PO Q7D Rx Instructions: take on Tuesday omeprazole 20 mg capsule,delayed release(DR/EC) 20 mg PO DAILY gabapentin 800 mg tablet 800 mg PO BEDTIME clopidogrel 75 mg tablet 75 mg PO DAILY multivitamin Tablet 1 tab PO DAILY flaxseed oil 1,000 mg Capsule 1,000 mg PO BID Rx Instructions: administer with meals vitamin B complex Tablet 1 tab PO DAILY magnesium 250 mg Tablet 250 mg PO DAILY fluticasone propionate 50 mcg/actuation spray,suspension 1 spray INTRANASAL DAILY cholecalciferol (vitamin D3) [Vitamin D3] 50 mcg (2,000 unit) Capsule 50 mcg PO DAILY Ozempic 1 mg/dose (4 mg/3 mL) pen injector 1 mg SUBCUT Q7D Rx Instructions: Tuesday aspirin 81 mg Tablet,Delayed Release (Dr/Ec) 81 mg PO DAILY Qty: 100 3RF nitroglycerin 0.4 mg Tablet, Sublingual 0.4 mg sublingual Q5M PRN (Reason: Chest Pain) Qty: 25 0RF Discharge Orders: Discharge ED (Routine); Ordered 08/29/24 Ordered By: Marta William Referrals: Melvin Chinchilla MD [Primary Care Provider] - Discharge Diet: Advance as tolerated Discharge Activity: Resume usual activity Patient Instructions: Chest Pain (ED) Print Language: Icelandic Coding Level of Care Code ED 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
[2024-08-29 14:05] LABS: Basophils % 0.6 %; Eosinophils # 0.1 10^3/uL (0.0-0.8); Eosinophils % 1.5 %; Hematocrit 40.3 % (36-47); Lymphocytes # 1.9 10^3/uL (0.8-4.8); Lymphocytes % 36.2 %; Mean Corpuscular HGB Conc 33.3 g/dL (30-55); Mean Corpuscular Hemoglobin 31.5 pg (27-33); Mean Corpuscular Volume 94.6 fl (85-98); Mean Platelet Volume 10.4 fL (7.4-10.4); Monocytes # 0.5 10^3/uL (0.2-0.9); Monocytes % 9.9 %; Neutrophils # 2.67 10^3/uL (1.8-7.7); Neutrophils % 51.6 %; Nucleated Red Blood Cells % 0 %; Platelet Count 193 10^3/cmm (157-399); Red Blood Count 4.26 10^6/uL (3.85-5.65); Red Cell Distribution Width 12.6 % (12.1-15.1); White Blood Count 5.17 10^3/uL (3.29-11.43)
[2024-08-29 14:12] LABS: INR 0.92 (0.8-1.2)
[2024-08-29 14:23] VITALS: BP 161/69; PULSE 69; RESP 26; O2SAT 98
[2024-08-29 14:36] LABS: Alanine Aminotransferase 15 U/L (0-33); Albumin Level 4.7 g/dL (3.5-5.2); Alkaline Phosphatase 58 U/L (35-105); Anion Gap 15.4 (5-19); Aspartate Amino Transferase 27 U/L (0-32); Blood Urea Nitrogen 13 mg/dL (8-23); Calcium 9.7 mg/dL (8.5-10.5); Carbon Dioxide 27 mmol/L (22-29); Chloride 103 mmol/L (98-107); Creatinine Clr Calc Pharmacy 46.6929; Globulin 2.8 g/dL (1.3-4.6); Glucose 79 mg/dL (65-115); Lipase 69 U/L (13-60); Osmolality Calculated 291 mOsm/kg (285-295); Potassium 4.4 mmol/L (3.5-5.1); Sodium 141 mmol/L (136-145); Total Bilirubin 0.3 mg/dL (0.15-1.2); Total Protein 7.5 g/dL (6.6-8.7)
[2024-08-29 15:07] LABS: Troponin(5th) Baseline 15 ng/L (0-10)
[2024-08-29 15:32] VITALS: BP 140/70; PULSE 70; RESP 15; O2SAT 94
--- NOTE | 2024-08-29 15:32 | ECG_ITS ---
[employer] Interpreting Test Date: 2024-08-29 Pat Name: Oneida Crowell Department: Room: Gender: Female Communications Department Head: : 1940 Requested By: Marta William Order Number: [id number] Reading MD: Measurements Intervals [place] Rate: 63 P: 72 WV: 214 QRS: -43 QRSD: 84 T: 87 QT: 400 QTc: 410 Interpretive Statements SINUS RHYTHM WITH FIRST DEGREE AV BLOCK LEFT AXIS DEVIATION [QRS AXIS < -30] LEFT VENTRICULAR HYPERTROPHY AND ST-T CHANGE [VOLTAGE CRITERIA PLUS ST/T ABNORMALITY] POSSIBLE SEPTAL MYOCARDIAL INFARCTION , OF INDETERMINATE AGE [30 ms Q WAVE IN V1/V2] [email or web address]
[2024-08-29 17:34] LABS: Troponin 5 2HR 15.38 ng/L (0-10); Troponin 5 2HR Delta 0.38 ABS# (0-10)
[2024-08-29 17:51] VITALS: BP 114/70; PULSE 71; O2SAT 100
== END 2024-08-29 17:52 | disposition home or self-care (01) ==
PROVIDERS: Emergency Provider Emergency Medicine; PCP Family Medicine
DX: R07.9 Chest pain, unspecified (principal); Z79.02 Long term (current) use of antithrombotics/antiplatelets; Z79.82 Long term (current) use of aspirin; E11.9 Type 2 diabetes mellitus without complications; I25.10 Atherosclerotic heart disease of native coronary artery without angina pectoris; E78.5 Hyperlipidemia, unspecified; I10 Essential (primary) hypertension
CPT/HCPCS: 36415; 71045; 80053; 83690; 84484; 85025; 85610; 93005; 99285

== ENCOUNTER 2024-08-30 13:44 | Outpatient (CLI) | payer MEDICARE, SELFPAY ==
--- NOTE | 2024-08-30 14:25 | XR_ITS ---
WS: [id number] SCREENING DEXA SCAN [employer] CLINICAL INFORMATION: OSTEOPOROSIS COMPARISON: None. FINDINGS: The L1-L4 bone mineral density measures 1.017. This corresponds to a T score score of -1.4 and Z score of 0.7. Left femoral neck bone mineral density measures 0.75. This corresponds to a T score of -2.0 and Z score of 0.2. Right femoral neck bone mineral density measures 0.75. This corresponds to a T score -2.1 of and Z score of 0.2. Mean femoral neck bone mineral density measures 0.75. This corresponds to a T score of -2.0 and Z score of 0.2. XR/XR DEXA axial skeleton* 64550 IMPRESSION: Osteopenia lumbar spine. Osteopenia femoral necks. Patient's FRAX calculated 10 year probability for major osteoporotic fracture i s 49.9% and osteoporotic hip fracture is 35.8%. Lumbar spine bone mineral density increased 0.3% Femoral neck bone mineral density decreased -4.2%
== END 2024-08-30 13:45 | disposition home or self-care (01) ==
LOC: RAD 13:51
PROVIDERS: PCP Family Medicine; Visit Provider Family Medicine
DX: Z78.0 Asymptomatic menopausal state (principal); M85.89 Other specified disorders of bone density and structure, multiple sites
CPT/HCPCS: 77080

== ENCOUNTER → 2024-09-11 07:51 | Outpatient (BNVA) | payer MEDICARE, SELFPAY | PROVIDERS: PCP Family Medicine; Visit Provider Internal Medicine Cardiovascular Disease | DX: I25.10 Atherosclerotic heart disease of native coronary artery without angina pectoris (principal); E78.5 Hyperlipidemia, unspecified; I10 Essential (primary) hypertension; F41.9 Anxiety disorder, unspecified; Z82.3 Family history of stroke; Z87.891 Personal history of nicotine dependence | CPT/HCPCS: 99214 ==